=== PATIENT | male | born 1965 | race Caucasian/White ===

== ENCOUNTER 2021-06-07 10:23 | Emergency (ER) | payer OTHER, SELFPAY ==
--- NOTE | ~2021-06-07 | CT_ITS ---
EXAMINATION: CT KNEE WITHOUT CONTRAST, LEFT CLINICAL INFORMATION: Fall, tibial plateau fracture. COMPARISON: XR left knee 06/07/2021. TECHNIQUE: Helical scanning was performed with submillimeter collimation in the axial plane with multiplanar 2-D reconstructions. This CT examination was performed using dose optimization techniques as appropriate, variously including the following: *Automated exposure control *Adjustment of mA and/or kV according to patient size (this includes techniques or standardized protocols for targeted exams where dose is matched to indication/reason for exam; i.e. extremities or head) *Use of iterative reconstruction technique DLP: 215 mGy-cm FINDINGS: There is a comminuted intra-articular fracture of the posterior weightbearing surface of the lateral tibial plateau. At the anterior margin of this fracture there is up to approximately 2.5 mm of depression and a gap in the articular surface measuring up to 3 mm transverse and 2 mm AP. The fracture then downslopes posteriorly such that there appears to be up to 4.5 mm of depression of the articular surface. There our some areas of impaction. No other fractures are identified. There is a large joint effusion with a possible thin layer of fat within the suprapatellar effusion consistent with a lipohemarthrosis. There is a posterior ossific fragment which appears to be relatively smooth and corticated and most likely represents a chronic loose body rather than a fracture fragment. There is a posteromedial fluid collection consistent with pes anserine bursitis. There are small marginal osteophytes involving all compartments. There is moderate medial compartment narrowing. CT/CT knee LT wo con IMPRESSION: 1. Comminuted intra-articular fracture of the posterior weightbearing lateral tibial plateau with posterior downsloping and approximately 2.5 to 4.5 mm of depression. 2. Large lipohemarthrosis (tiny amount of fat). 3. Tricompartmental osteoarthritis, including moderate medial compartment narrowing. Posterior loose body. 4. Pes anserine bursitis.
--- NOTE | ~2021-06-07 | XR_ITS ---
EXAMINATION: XR KNEE, LEFT CLINICAL INFORMATION: Pain. Trauma. COMPARISON: None TECHNIQUE: Four views of the left knee. FINDINGS: There is a depressed lateral tibial plateau fracture. No other fracture is seen. The femoral tibial joints are normal. There are small osteophytes at the patellofemoral joint. There is a large joint effusion. XR/XR knee LT 3V IMPRESSION: Depressed lateral tibial plateau fracture.
[2021-06-07 10:35] VITALS: BP 128/86; PULSE 68; RESP 18; TEMP 35.8; O2SAT 97; BMI 27.3
--- NOTE | 2021-06-07 10:41 | ED_ITS ---
HPI - Fall General Chief Complaint: Fall Stated Complaint: left lower leg pain Time Seen by Provider: 06/07/21 10:37 Source: patient and EMS Mode of arrival: EMS Limitations: no limitations History of Present Illness HPI Narrative: 56-year-old male who jumped about 6 ft fence this morning twisted his left knee, now is complaining of left knee pain, no head injury, no LOC, no headache, no chest pain, no shortness of breath, no abdominal pain, no abdominal injuries, no hips pain, only complain of left knee pain and feeling unsteady when he walks. Related Data Previous Rx's Medication Instructions Recorded ibuprofen 600 mg tablet 600 mg PO TID PRN #20 tab 06/07/21 Allergies Allergy/AdvReac Type Severity Reaction Status Date / Time seafood Allergy Mild Rash Verified 06/07/21 10:40 Review of Systems Review of Systems: All other systems are reviewed and are negative Constitutional: Reports as per HPI and Reports no additional constitutional complaints Eyes: Reports as per HPI and Reports no additional eye complaints Reports system reviewed and no additional complaints, except as documented Cardiovascular: Reports as per HPI and Reports no additional cardiovascular complaints Respiratory: Reports as per HPI and Reports no additional respiratory complaints Gastrointestinal: Reports as per HPI and Reports no additional gastrointestinal complaints Genitourinary: Reports no additional female genitourinary complaints Musculoskeletal: Reports no additional musculoskeletal complaints Skin/Breast: Reports system reviewed and no additional complaints, except as docu Psychiatric: Reports no additional psychiatric complaints Endocrine: Reports no additional endocrine complaints Hematologic/Lymphatic: Reports no additional hematologic/lymphatic complaints Allergic/Immunologic: Reports no additional allergic/immunologic complaints Reports system reviewed and no additional complaints, except as documented and Reports Abnormal speech present [facility] Social History Social History Advance Directives: No Advance Directives Information Provided: Yes Physical Exam Vital Signs: Vital Signs: Last Vital Signs Temp 97.6 F 06/07/21 11:38 Pulse 68 06/07/21 10:35 Resp 18 06/07/21 12:30 BP 128/86 06/07/21 10:35 Pulse Ox 97 06/07/21 10:35 Body Mass Index 27.3 Vital signs have been reviewed as appeared to be correct. Blood pressure normal. Heart rate normal. Respiration rate normal. Temperature normal. Oxygen saturation normal. Appearance: Alert. Oriented X3. No acute distress. Head: Normal external exam. Normocephalic. Atraumatic. No [place] signs noted. No raccoon eyes noted Eyes: PERRLA. EOMI. Conjunctiva and sclera normal. Eyelids normal. ENT: TM's Normal. Pharynx normal. Uvula midline. Moist mucous membranes. No trismus noted. No drooling noted. No muffled voice noted. Neck: Normal inspection. Neck supple. FROM. No adenopathy. Thyroid Normal. No meningeal signs. No neck mass noted. CVS: Normal heart rate and rhythm. Heart sound normal. No murmurs noted. Pulses normal throughout. Respiratory: No respiratory distress. Painless inspiration. Breath sounds normal. No wheezes/rales/rhonchi noted. Chest nontender. No accessory muscle usage noted or decreased air movement noted. Abdomen: Soft and nontender. Bowel sounds normal in all 4 quadrants. No distention noted. No organomegaly noted. No visible injury noted. Back: No CVA tenderness. Full range of motion noted. Skin: Skin warm and dry. Normal skin color. Normal skin turgor. No rashes/lesions/lacerations noted. Extremities: left knee: no deformity or step-off, no ligamentous injury. Neuro: Oriented X 3. Cranial nerve exam: II-XII are grossly intact No motor deficit. No sensory deficit. Reflexes normal. Course Course Course Narrative: Assessment and plan. Left knee depressed tibial plateau fracture. Knee elevation, knee immobilizer, ice application and follow up with ortho. No weight-bearing. MDM - Fall Medical Records Attestation: I reviewed the patient's medical records. Imaging Data Left knee x-ray: Radiologist's impression: No acute pathology. Discharge Plan Discharge Clinical Impression: Closed fracture of tibial plateau Knee sprain Qualifiers: Encounter type: initial encounter Involved ligament of knee: unspecified ligament Laterality: left Qualified Code(s): S83.92XA - Sprain of unspecified site of left knee, initial encounter Patient Disposition: Home, Self-Care Instructions: Knee Immobilizer (ED) Prescriptions: New ibuprofen 600 mg tablet 600 mg PO TID PRN (Reason: pain) Qty: 20 RF: 0 Referrals: Reece Dang MD [Physician] - 2 days Fany Baldwin MD [Primary Care Provider] - 2 days
[2021-06-07] MEDS: Ibuprofen 600 MG TABLET PO (10:56)
[2021-06-07 11:38] VITALS: TEMP 36.4
[2021-06-07 12:30] VITALS: RESP 18
== END 2021-06-07 14:24 | disposition home or self-care (01) ==
PROVIDERS: Emergency Provider Emergency Medicine; PCP Internal Medicine
DX: S82.142A Displaced bicondylar fracture of left tibia, initial encounter for closed fracture (principal); S83.92XA Sprain of unspecified site of left knee, initial encounter; M25.562 Pain in left knee; W01.0XXA Fall on same level from slipping, tripping and stumbling without subsequent striking against object, initial encounter; Y93.9 Activity, unspecified; Y92.9 Unspecified place or not applicable; Y99.9 Unspecified external cause status
CPT/HCPCS: 73562; 73700; 99284

== ENCOUNTER → 2021-06-10 10:56 | Outpatient (BNVA) | payer OTHER, SELFPAY | PROVIDERS: PCP Internal Medicine; Visit Provider Physician Assistant ==

== ENCOUNTER 2021-07-19 07:56 | Outpatient (REF) | payer OTHER, SELFPAY ==
--- NOTE | ~2021-07-19 | XR_ITS ---
EXAMINATION: XR BOTH KNEES AP STANDING XR KNEE, 2 VIEWS, LEFT CLINICAL INFORMATION: Knee pain. COMPARISON: CT and radiographs dated 06/07/2021. TECHNIQUE: Standing AP view of both knees and lateral and sunrise views of the left knee. FINDINGS: LEFT KNEE: The known mildly depressed intra-articular fracture at the lateral tibial plateau is not well seen on these images. Alignment is grossly unchanged as compared to prior. No new fractures. An 8 mm loose body is present in the posterior aspect of the joint. Trace effusion. Mild foraminal osteoarthritis. RIGHT KNEE: Mild osteoarthritis in the medial and lateral compartments. Small chronic osseous fragment at the medial margin of the medial femoral condyle. No acute osseous findings. XR/XR knee LT 2V IMPRESSION: 1. Known, mildly depressed fracture at the lateral tibial plateau is not well seen on these images. No appreciable change in alignment. 2. Mild osteoarthritis in both knees, unchanged.
--- NOTE | ~2021-07-19 | XR_ITS ---
EXAMINATION: XR BOTH KNEES AP STANDING XR KNEE, 2 VIEWS, LEFT CLINICAL INFORMATION: Knee pain. COMPARISON: CT and radiographs dated 06/07/2021. TECHNIQUE: Standing AP view of both knees and lateral and sunrise views of the left knee. FINDINGS: LEFT KNEE: The known mildly depressed intra-articular fracture at the lateral tibial plateau is not well seen on these images. Alignment is grossly unchanged as compared to prior. No new fractures. An 8 mm loose body is present in the posterior aspect of the joint. Trace effusion. Mild foraminal osteoarthritis. RIGHT KNEE: Mild osteoarthritis in the medial and lateral compartments. Small chronic osseous fragment at the medial margin of the medial femoral condyle. No acute osseous findings. XR/XR knee standing BI IMPRESSION: 1. Known, mildly depressed fracture at the lateral tibial plateau is not well seen on these images. No appreciable change in alignment. 2. Mild osteoarthritis in both knees, unchanged.
== END 2021-07-19 07:57 | disposition home or self-care (01) ==
LOC: HO.HOSX 07:56
PROVIDERS: Visit Provider Physician Assistant
DX: S82.142D Displaced bicondylar fracture of left tibia, subsequent encounter for closed fracture with routine healing (principal)
CPT/HCPCS: 73560; 73565

== ENCOUNTER 2021-07-23 04:42 | Inpatient (IN) | payer OTHER, SELFPAY ==
[2021-07-23] VITALS (11 sets, daily range): BP systolic 102–155; BP diastolic 66–91; PULSE 73–124; RESP 16–20; TEMP 36.5–38.7; O2SAT 88–96; BMI 27.6; BMI 28.5
--- NOTE | ~2021-07-23 | XR_ITS ---
EXAMINATION: XR CHEST CLINICAL INFORMATION: Chest pain COMPARISON: None TECHNIQUE: Frontal view of the chest was obtained. FINDINGS: Cardiac leads overlie the chest. The lungs are well expanded. Patchy airspace opacities of the left mid to lower lung. No pleural effusion or pneumothorax. The cardiomediastinal silhouette is within normal limits. XR/XR chest 1V IMPRESSION: Patchy left mid to lower lung airspace opacities are concerning for pneumonia. Follow-up to resolution.
--- NOTE | 2021-07-23 04:57 | ECG_ITS ---
Test Reason : ABD PAIN Blood Pressure : / mmHG Vent. Rate : 117 BPM Atrial Rate : 117 BPM P-R Int : 136 ms QRS Dur : 076 ms QT Int : 326 ms P-R-T Axes : 044 -35 014 degrees QTc Int : 454 ms Sinus tachycardia Left axis deviation Abnormal ECG When compared with ECG of 13-APR-2006 20:39, No significant change was found Referred By: Generic ED Physician Electronically Signed By:JOSE ANGEL GARAY
[2021-07-23 05:26] LABS: Appearance Urine CLEAR; Color Urine YELLOW; Glucose Urine UA NEG (NEG); Leukocyte Esterase Urine NEG (NEG); Nitrite Urine NEG (NEG); Specific Gravity - Urine 1.025 (1.005-1.025); Urine Blood NEG (NEG); Urine Ketones NEG (NEG); Urine Protein NEG (NEG-TRACE)
[2021-07-23 05:38] LABS: Basophils Percent Auto 0.2 % (0-2); Eosinophils Absolute Auto 0.1 X10*3/uL (0.0-0.4); Eosinophils Percent Auto 0.7 % (0-4); Hematocrit 45.3 % (42.0-52.0); Hemoglobin 14.7 g/dl (14.0-18.0); Imm Gran Abs Auto 0.04 X10*3/uL (0.00-0.03); Imm Gran Pct Auto 0.3 % (0.0-0.4); Lymphocytes Absolute Auto 0.9 X10*3/uL (1.2-4.9); Lymphocytes Percent Auto 6.3 % (20-40); MANUAL DIFF FLAG SCAN; Mean Corpuscular HGB Conc 32.5 g/dl (31.0-36.0); Mean Corpuscular Hemoglobin 29.9 pg (27.0-33.0); Mean Corpuscular Volume 92.1 fL (80.0-98.0); Mean Platelet Volume 10.2 fL (9.4-12.4); Monocytes Absolute Auto 0.3 X10*3/uL (0.1-1.2); Monocytes Percent Auto 2.1 % (2-11); Neutrophils Absolute Auto 13.2 x10*3/uL (2.0-8.3); Neutrophils Percent Auto 90.4 % (45-73); Platelet Count 351 X10*3/uL (160-400); Red Blood Count 4.92 X10*6/uL (4.60-5.80); Red Cell Distribution Width 13.3 % (11.0-16.0); SCAN SMEAR FLAG 1; White Blood Count 14.6 X10*3/uL (4.8-10.8)
[2021-07-23 05:39] LABS: COVID-19 Test Negative (Negative)
[2021-07-23 05:43] LABS: Anion Gap 11 (12-20); Blood Urea Nitrogen 19 mg/dL (9-16); Calcium 9.5 mg/dL (8.4-10.2); Carbon Dioxide 30 mmol/L (22-29); Chloride 104 mmol/L (96-108); Creatinine Clr Calc Pharmacy 90.8; Estimated Glomerular Filt Rate > 60; Glucose Random 109 mg/dL (60-115); Sodium 141 mmol/L (135-145)
[2021-07-23 05:44] LABS: Lactic Acid 1.3 mmol/L (0.5-2.0)
[2021-07-23 05:52] LABS: INTERNATIONAL NORM RATIO 0.9 (0.9-1.1); Prothrombin Time 10.5 SEC (9.9-13.0)
[2021-07-23 06:04] LABS: Troponin-I High Sensitivity < 3.5 ng/L (<3.5-35.0)
[2021-07-23 06:08] LABS: SLIDE REVIEW VERIFIED
--- NOTE | 2021-07-23 06:35 | ED.CHESTPAIN ---
HPI - Chest Pain General Chief Complaint: Chest Pain Stated Complaint: body aches Time Seen by Provider: 07/23/21 06:34 Source: patient Mode of arrival: EMS Limitations: no limitations History of Present Illness MD complaint: other (cough, fevers, doesn't feel well) Pertinent past history: other (asthma, received 3 COVID shots) Onset (ago): day(s) (2) Timing of current episode: constant Prior episodes: No Onset: during rest Pain location: other (whole body) Severity: moderate Quality: aching Relieving factors: nothing Exacerbating factors: other (worse with cough) Associated symptoms: other (cough, fevers, mucous production, doesn't feel well) Treatment prior to arrival: none Related Data Home Medications Medication Instructions Recorded Confirmed albuterol sulfate 90 mcg/actuation INHALATION 07/23/21 aerosol inhaler budesonide-formoterol HFA 160 INHALATION 07/23/21 mcg-4.5 mcg/actuation aerosol inhaler (Symbicort) omeprazole 40 mg capsule,delayed 1 cap PO DAILY 07/23/21 release rosuvastatin 10 mg tablet 1 tab PO BEDTIME 07/23/21 Previous Rx's Medication Instructions Recorded ibuprofen 600 mg tablet 600 mg PO TID PRN #20 tab 06/07/21 Allergies Allergy/AdvReac Type Severity Reaction Status Date / Time seafood Allergy Mild Rash Verified 07/19/21 14:04 Review of Systems Review of Systems: Constitutional : pos Fever, pos Chills ENT/Mouth : No Hoarseness, No sore throat, No Rhinorrhea Eyes: No Redness, No Discharge, No Vision Changes Cardiovascular : No Chest Pain, positive SOB, positive Dyspnea on Exertion, No Edema Respiratory : positive Cough, pos Sputum, positive Wheezing, Gastrointestinal : No Nausea, No Vomiting, No Diarrhea, No abdominal Pain Genitourinary : No Dysuria, No Hematuria Musculoskeletal : No joint pain, pos Myalgias Skin : No rash Neuro : pos Weakness, No Numbness, No Headache Psych : No anxiety, depression Heme/Lymph: No Bruising, No Bleeding Endocrine : No Polyuria, No Polydipsia All other systems reviewed and are negative [facility] Past Medical History Attestation statement: The following information was validated with the patient. Medical History Asthma Social History Social History (Updated 07/23/21 @ 06:52 by Katiuska Rousseau DO) Patient Tobacco Use Status: Former Tobacco user Advance Directives: No Current occupational status: disabled Current occupation: rt hand Physical Exam Vital Signs: Vital Signs: Last Vital Signs Temp 100.3 F 07/23/21 07:54 Pulse 118 H 07/23/21 08:25 Resp 20 07/23/21 08:25 BP 127/76 07/23/21 07:54 Pulse Ox 88 L 07/23/21 08:25 Oxygen Flow Rate 3 07/23/21 04:51 BMI result Body Mass Index 27.6 Appearance: Alert. Oriented X3. No acute distress. Eyes: Pupils equal, round and reactive to light. ENT: Pharynx normal. Neck: Normal inspection. Neck supple. CVS: tachycardic heart rate and rhythm. Pulses normal. Respiratory: No respiratory distress. Breath sounds mild diffuse exp wheezes noted Abdomen: Soft and nontender. Skin: Skin warm and dry. Normal skin color. Normal skin turgor. Extremities: No lower extremity edema. No calf ttp Neuro: Oriented X 3. No motor deficit. No sensory deficit. Course Course Course Narrative: tachycardic, febrile, 88% on RA - will admit for pneumonia rapid test negative reprorts booster x 3 PCR sent off. MDM - Chest Pain MDM Narrative Medical decision making narrative: 56 yo male with hx of asthma vaccinated x 3 for COVID comes in with URI symptoms and not feeling well at this time seems more infectious - labs, CXR, neb treatment, IV steroids, lactic acid and cultures. CXR from triage shows that he has left sided pneumonia - CAP treatment ordered after review at 640am. Dispo per improvement and observation in ED Lab Data Result diagrams: 07/23/21 05:24 07/23/21 05:15 Labs: Lab Results 07/23/21 07/23/21 07/23/21 Range/Units 05:15 05:15 05:15 WBC (4.8-10.8) X10*3/uL RBC (4.60-5.80) X10*6/uL Hgb (14.0-18.0) g/dl Hct (42.0-52.0) % MCV (80.0-98.0) fL MCH (27.0-33.0) pg MCHC (31.0-36.0) g/dl RDW (11.0-16.0) % Plt Count (160-400) X10*3/uL MPV (9.4-12.4) fL Immature Gran % (Auto) (0.0-0.4) % Neut % (Auto) (45-73) % Lymph % (Auto) (20-40) % [place] % (Auto) (2-11) % Eos % (Auto) (0-4) % Baso % (Auto) (0-2) % Lymph # (Auto) (1.2-4.9) X10*3/uL [place] # (Auto) (0.1-1.2) X10*3/uL Eos # (Auto) (0.0-0.4) X10*3/uL Baso # (Auto) (0.0-0.2) X10*3/uL Abs Immat Gran (auto) (0.00-0.03) X10*3/uL Absolute Neuts (auto) (2.0-8.3) x10*3/uL Absolute Nucleated RBC (0.0-0.012) X10*3/uL Nucleated RBC % (auto) (0.0-0.2) /100WBC Smear Tech's Comments PT (9.9-13.0) SEC INR (0.9-1.1) Sodium 141 (135-145) mmol/L Potassium 4.0 (3.3-5.1) mmol/L Chloride 104 (96-108) mmol/L Carbon Dioxide 30 H (22-29) mmol/L Anion Gap 11 L (12-20) BUN 19 H (9-16) mg/dL Creatinine 0.94 (0.5-1.4) mg/dL Estim Creat Clear Calc 90.8 Estimated GFR > 60 Random Glucose 109 (60-115) mg/dL Lactic Acid 1.3 (0.5-2.0) mmol/L Calcium 9.5 (8.4-10.2) mg/dL Troponin I High Sens (<3.5-35.0) ng/L Urine Color Urine Appearance Urine pH (5.0-8.0) Ur Specific [place] (1.005-1.025) Urine Protein (NEG-TRACE) MG/DL Urine Glucose (UA) (NEG) MG/DL Urine Ketones (NEG) MG/DL Urine Blood (NEG) Urine Nitrite (NEG) Ur Leukocyte Esterase (NEG) COVID-19 (FELIX) Negative (Negative) COVID-19 Clin Com See Note Influenza Type A (PCR) (Negative) Influenza Type B (PCR) (Negative) RSV RNA Qual (PCR) (Negative) SARS-CoV-2 RNA (RT-PCR) (Negative) 07/23/21 07/23/21 07/23/21 Range/Units 05:16 05:24 05:24 WBC 14.6 H (4.8-10.8) X10*3/uL RBC 4.92 (4.60-5.80) X10*6/uL Hgb 14.7 (14.0-18.0) g/dl Hct 45.3 (42.0-52.0) % MCV 92.1 (80.0-98.0) fL MCH 29.9 (27.0-33.0) pg MCHC 32.5 (31.0-36.0) g/dl RDW 13.3 (11.0-16.0) % Plt Count 351 (160-400) X10*3/uL MPV 10.2 (9.4-12.4) fL Immature Gran % (Auto) 0.3 (0.0-0.4) % Neut % (Auto) 90.4 H (45-73) % Lymph % (Auto) 6.3 L (20-40) % [place] % (Auto) 2.1 (2-11) % Eos % (Auto) 0.7 (0-4) % Baso % (Auto) 0.2 (0-2) % Lymph # (Auto) 0.9 L (1.2-4.9) X10*3/uL [place] # (Auto) 0.3 (0.1-1.2) X10*3/uL Eos # (Auto) 0.1 (0.0-0.4) X10*3/uL Baso # (Auto) 0.0 (0.0-0.2) X10*3/uL Abs Immat Gran (auto) 0.04 H (0.00-0.03) X10*3/uL Absolute Neuts (auto) 13.2 H (2.0-8.3) x10*3/uL Absolute Nucleated RBC 0.000 (0.0-0.012) X10*3/uL Nucleated RBC % (auto) 0.0 (0.0-0.2) /100WBC Smear Tech's Comments VERIFIED PT (9.9-13.0) SEC INR (0.9-1.1) Sodium (135-145) mmol/L Potassium (3.3-5.1) mmol/L Chloride (96-108) mmol/L Carbon Dioxide (22-29) mmol/L Anion Gap (12-20) BUN (9-16) mg/dL Creatinine (0.5-1.4) mg/dL Estim Creat Clear Calc Estimated GFR Random Glucose (60-115) mg/dL Lactic Acid (0.5-2.0) mmol/L Calcium (8.4-10.2) mg/dL Troponin I High Sens < 3.5 (<3.5-35.0) ng/L Urine Color YELLOW Urine Appearance CLEAR Urine pH 6.0 (5.0-8.0) Ur Specific [place] 1.025 (1.005-1.025) Urine Protein NEG (NEG-TRACE) MG/DL Urine Glucose (UA) NEG (NEG) MG/DL Urine Ketones NEG (NEG) MG/DL Urine Blood NEG (NEG) Urine Nitrite NEG (NEG) Ur Leukocyte Esterase NEG (NEG) COVID-19 (FELIX) (Negative) COVID-19 Clin Com Influenza Type A (PCR) (Negative) Influenza Type B (PCR) (Negative) RSV RNA Qual (PCR) (Negative) SARS-CoV-2 RNA (RT-PCR) (Negative) 07/23/21 07/23/21 Range/Units 05:24 08:03 WBC (4.8-10.8) X10*3/uL RBC (4.60-5.80) X10*6/uL Hgb (14.0-18.0) g/dl Hct (42.0-52.0) % MCV (80.0-98.0) fL MCH (27.0-33.0) pg MCHC (31.0-36.0) g/dl RDW (11.0-16.0) % Plt Count (160-400) X10*3/uL MPV (9.4-12.4) fL Immature Gran % (Auto) (0.0-0.4) % Neut % (Auto) (45-73) % Lymph % (Auto) (20-40) % [place] % (Auto) (2-11) % Eos % (Auto) (0-4) % Baso % (Auto) (0-2) % Lymph # (Auto) (1.2-4.9) X10*3/uL [place] # (Auto) (0.1-1.2) X10*3/uL Eos # (Auto) (0.0-0.4) X10*3/uL Baso # (Auto) (0.0-0.2) X10*3/uL Abs Immat Gran (auto) (0.00-0.03) X10*3/uL Absolute Neuts (auto) (2.0-8.3) x10*3/uL Absolute Nucleated RBC (0.0-0.012) X10*3/uL Nucleated RBC % (auto) (0.0-0.2) /100WBC Smear Tech's Comments PT 10.5 (9.9-13.0) SEC INR 0.9 (0.9-1.1) Sodium (135-145) mmol/L Potassium (3.3-5.1) mmol/L Chloride (96-108) mmol/L Carbon Dioxide (22-29) mmol/L Anion Gap (12-20) BUN (9-16) mg/dL Creatinine (0.5-1.4) mg/dL Estim Creat Clear Calc Estimated GFR Random Glucose (60-115) mg/dL Lactic Acid (0.5-2.0) mmol/L Calcium (8.4-10.2) mg/dL Troponin I High Sens (<3.5-35.0) ng/L Urine Color Urine Appearance Urine pH (5.0-8.0) Ur Specific [place] (1.005-1.025) Urine Protein (NEG-TRACE) MG/DL Urine Glucose (UA) (NEG) MG/DL Urine Ketones (NEG) MG/DL Urine Blood (NEG) Urine Nitrite (NEG) Ur Leukocyte Esterase (NEG) COVID-19 (FELIX) (Negative) COVID-19 Clin Com Influenza Type A (PCR) NEGATIVE (Negative) Influenza Type B (PCR) NEGATIVE (Negative) RSV RNA Qual (PCR) NEGATIVE (Negative) SARS-CoV-2 RNA (RT-PCR) NEGATIVE (Negative) ECG Data ECG #1: Attestation: I personally reviewed and interpreted this ECG as follows: ECG interpretation date: 07/23/21 ECG interpretation time: 07:04 Interpretation: Rate: 117 Rhythm: sinus tachycardia [place]: left Normal P waves. Normal AYAZ. Normal QRS complex. ST T wave : normal no VIOLETTA qTC: normal prior studies: no acute ischemia The study has been interpreted contemporaneously by me. . Discharge Plan Discharge Clinical Impression: Pneumonia, Fever, Hypoxia Patient Disposition: Admitted As Inpatient
[2021-07-23] MEDS: Ibuprofen 600 MG TABLET PO (07:03)
[2021-07-23] MEDS: Acetaminophen 325 MG TABLET 650 MG PO (07:04)
[2021-07-23] MEDS: methylPREDNISolone Sod Succ 125 MG/2 ML VIAL IVPUSH (07:04)
[2021-07-23] MEDS: cefTRIAXone sodium 1 GM in 0.9 % Sodium Chloride 50 ML IV (07:06)
[2021-07-23] MEDS: Albuterol Sulfate (0.083%) 2.5 MG/3 ML VIAL.NEB INHALE ×3 (07:09→20:37)
[2021-07-23] MEDS: Azithromycin 500 MG in 0.9 % Sodium Chloride 250 ML 125 MG IV (07:53)
--- NOTE | 2021-07-23 08:06 | PC.NURSE ---
PT PALE AND REMAINS TACHYCARDIAC AND FEBRILE. HE IS ON O2 NC WILL TRIAL OFF. REPORTS NAUSEA, ANTIBIOTICS INFUSING
[2021-07-23 08:45] LABS: Influenza A PCR NEGATIVE (Negative); Influenza B PCR NEGATIVE (Negative); Resp Syncy Virus RNA Qual PCR NEGATIVE (Negative); SARS COV2 PCR INHOUSE NEGATIVE (Negative)
--- NOTE | 2021-07-23 09:06 | PHA.MEDREC ---
Pharmacy Consult ? Medication Reconciliation Pharmacy has completed the medication reconciliation. No remarkable issues. Jenan Ivan RP
--- NOTE | 2021-07-23 09:11 | P.HPHOSP_ITS ---
History of Present Illness Date of Service: 07/23/21 Chief Complaint: Shortness of breath 56 yearl old male with asthma, HLD, vaccinated for covid x 2, and booster, and flu shot. Starting last night was having fever and chills, sweating and vomitted 2, he has been coughing with phlegm. Here had fever of 101, WBC of 14 CXR shows left lower infiltrated O2 sat was 88 on room air and up to 96 on 2 liters. He is being admitted for CAP with sepsis Review of Systems Review of Systems: Gen:+ fever Resp: no sob, no cough CV: no chest, no DEAN, no leg edema GI: No+ n/v, no abd pain Neuro: No confusion Yes all other systems are reviewed and are negative [facility] Medical History (Updated 07/23/21 @ 09:32 by Ty Peterson MD) Asthma GERD (gastroesophageal reflux disease) HLD (hyperlipidemia) Family History (Updated 07/23/21 @ 09:19 by Ty Peterson MD) Brother Diabetes Surgical History (Updated 07/23/21 @ 09:19 by Ty Peterson MD) History of appendectomy Social History (Updated 07/23/21 @ 06:52 by Katiuska Rousseau DO) Patient Tobacco Use Status: Former Tobacco user Advance Directives: No Current occupational status: disabled Current occupation: rt hand Meds Allergies Allergy/AdvReac Type Severity Reaction Status Date / Time seafood Allergy Mild Rash Verified 07/19/21 14:04 Active Medications: Current Medications Sodium Chloride (Ns) 1,000 mls @ 999 mls/hr IV .Q1H1M [place] Stop: 07/23/21 09:15 Pharmacy Consult (Consult Rx Perform Med Rec) 1 each MISCELLANE ONCE PRN PRN Reason: Consult order Home Medications Medication Instructions Recorded Confirmed Last Taken Type albuterol sulfate 1.25 mg/3 mL 2.5 mg INHALATION BID PRN 07/23/21 07/23/21 Unknown History solution for nebulization albuterol sulfate 90 mcg/actuation 2 puff INHALATION Q4H PRN 07/23/21 07/23/21 Unknown History aerosol inhaler budesonide-formoterol HFA 160 1 puff INHALATION BID 07/23/21 07/23/21 07/22/21 History mcg-4.5 mcg/actuation aerosol inhaler (Symbicort) omeprazole 40 mg capsule,delayed 1 cap PO DAILY 07/23/21 07/23/21 07/22/21 History release rosuvastatin 10 mg tablet 1 tab PO BEDTIME 07/23/21 07/22/21 History Physical Exam Vital Signs and Narrative: Vital Signs: Last Vital Signs Temp 100.3 F 07/23/21 07:54 Pulse 118 H 07/23/21 08:25 Resp 20 07/23/21 08:25 BP 127/76 07/23/21 07:54 Pulse Ox 88 L 07/23/21 08:25 Oxygen Flow Rate 3 07/23/21 04:51 BMI result Body Mass Index 27.6 Const: Other: Constitutional: Alert, in no distress Mental Status: Oriented to person, place and time. Eyes: Pupils are equal, round and reactive to light. Ear, Nose and Throat: Oropharynx clear, mucous membranes moist. Ears and nose without eformities. Trachea midline. Respiratory: Clear to auscultation. some wheezes, no accessory muscle use Cardiovascular: S1 S2 regular. No murmurs, rubs or gallops. Gastrointestinal: Abdomen soft, non-tender, non-distended. Normal bowel sounds.? Neurologic: Cranial nerves II-XII grossly intact. No focal neurological defi cits. Moves all extremities spontaneously.? Skin: No rashes or lesions.? Musculoskeletal: No cyanosis or clubbing. Psychiatric: Normal mood and affect? Results Labs CBC and Chem 7: 07/23/21 05:24 07/23/21 05:15 Labs: Laboratory Results - last 24 hr 07/23/21 07/23/21 07/23/21 05:15 05:15 05:15 MCV MCH MCHC RDW Plt Count MPV Immature Gran % (Auto) Neut % (Auto) Lymph % (Auto) Frontier % (Auto) Eos % (Auto) Baso % (Auto) Lymph # (Auto) Frontier # (Auto) Eos # (Auto) Baso # (Auto) Abs Immat Gran (auto) Absolute Neuts (auto) Absolute Nucleated RBC Nucleated RBC % (auto) Smear Tech's Comments PT INR Anion Gap 11 L Estim Creat Clear Calc 90.8 Estimated GFR > 60 Random Glucose 109 Lactic Acid 1.3 Calcium 9.5 Troponin I High Sens Urine Color Urine Appearance Urine pH Ur Specific Upper Tract Urine Protein Urine Glucose (UA) Urine Ketones Urine Blood Urine Nitrite Ur Leukocyte Esterase COVID-19 (FELIX) Negative COVID-19 Clin Com See Note Influenza Type A (PCR) Influenza Type B (PCR) RSV RNA Qual (PCR) SARS-CoV-2 RNA (RT-PCR) 07/23/21 07/23/21 07/23/21 05:16 05:24 05:24 MCV 92.1 MCH 29.9 MCHC 32.5 RDW 13.3 Plt Count 351 MPV 10.2 Immature Gran % (Auto) 0.3 Neut % (Auto) 90.4 H Lymph % (Auto) 6.3 L Frontier % (Auto) 2.1 Eos % (Auto) 0.7 Baso % (Auto) 0.2 Lymph # (Auto) 0.9 L Frontier # (Auto) 0.3 Eos # (Auto) 0.1 Baso # (Auto) 0.0 Abs Immat Gran (auto) 0.04 H Absolute Neuts (auto) 13.2 H Absolute Nucleated RBC 0.000 Nucleated RBC % (auto) 0.0 Smear Tech's Comments VERIFIED PT INR Anion Gap Estim Creat Clear Calc Estimated GFR Random Glucose Lactic Acid Calcium Troponin I High Sens < 3.5 Urine Color YELLOW Urine Appearance CLEAR Urine pH 6.0 Ur Specific Upper Tract 1.025 Urine Protein NEG Urine Glucose (UA) NEG Urine Ketones NEG Urine Blood NEG Urine Nitrite NEG Ur Leukocyte Esterase NEG COVID-19 (FELIX) COVID-19 Clin Com Influenza Type A (PCR) Influenza Type B (PCR) RSV RNA Qual (PCR) SARS-CoV-2 RNA (RT-PCR) 07/23/21 07/23/21 05:24 08:03 MCV MCH MCHC RDW Plt Count MPV Immature Gran % (Auto) Neut % (Auto) Lymph % (Auto) Frontier % (Auto) Eos % (Auto) Baso % (Auto) Lymph # (Auto) Frontier # (Auto) Eos # (Auto) Baso # (Auto) Abs Immat Gran (auto) Absolute Neuts (auto) Absolute Nucleated RBC Nucleated RBC % (auto) Smear Tech's Comments PT 10.5 INR 0.9 Anion Gap Estim Creat Clear Calc Estimated GFR Random Glucose Lactic Acid Calcium Troponin I High Sens Urine Color Urine Appearance Urine pH Ur Specific Upper Tract Urine Protein Urine Glucose (UA) Urine Ketones Urine Blood Urine Nitrite Ur Leukocyte Esterase COVID-19 (FELIX) COVID-19 Clin Com Influenza Type A (PCR) NEGATIVE Influenza Type B (PCR) NEGATIVE RSV RNA Qual (PCR) NEGATIVE SARS-CoV-2 RNA (RT-PCR) NEGATIVE Imaging Radiologist's Impressions: Impressions Chest X-Ray 07/23/21 05:45 IMPRESSION: Patchy left mid to lower lung airspace opacities are concerning for pneumonia. Follow-up to resolution. Assessment and Plan (1) Sepsis: Status: Acute (2) Pneumonia: Qualifiers: Laterality: left Lung location: unspecified part of lung Pneumonia type: due to unspecified organism Qualified Code(s): J18.9 - Pneumonia, unspecified organism Status: Acute (3) Hypoxia: Status: Acute 56 male with asthma here with SOB and found to have acute hypoxic resp failure, sepsis, pneumonia and asthma exacerbation #Sepsis due to PNA #CAP -Started on Ceftriaxone and Azithro and will continue -APAP for fever #Acute hypoxic resp failue due to PNA and asthma--improved with O2, covid negative #Asthma with mod exaerbation--IV steroid, bronchodilators #HLD, Statin #GERD--Omeprazole Quality Stroke Does the patient have a stroke diagnosis?: No VTE Prior VTE?: No VTE Risk Level:: Medical - moderate - high VTE Device Contraindication: Treatment Not Indicated VTE Drug Contraindication: N/A - Med Ordered
[2021-07-23] MEDS: 0.9 % Sodium Chloride 1,000 ML 999 ML IV (10:13)
--- NOTE | 2021-07-23 10:57 | MHC.CM.PN ---
pt lives c his in their home. he reports that he is independent in his care. his can help him c any needs he may have at dc. this will include a ride home. pt denies the need for vna svcs at dc. dc plan is home no svcs. cm to cont. to follow.
[2021-07-23] MEDS: Enoxaparin Sodium 40 MG/0.4 ML SYRINGE SUBCUT (11:16)
--- NOTE | 2021-07-23 13:55 | PC.NURSE ---
pt sleeping in naps. he is tolerating po intake, no acute resp difficulties. pt awaiting room assignment for admission
[2021-07-23] MEDS: 0.9 % Sodium Chloride Flush 3 ML SYRINGE IVFLUSH ×2 (15:24→23:59)
[2021-07-23] MEDS: methylPREDNISolone Sod Succ 40 MG/ML VIAL IVPUSH (18:11)
[2021-07-24] VITALS (8 sets, daily range): BP systolic 109–130; BP diastolic 58–78; PULSE 72–96; RESP 16–18; TEMP 36.3–37.1; O2SAT 92–97; BMI 28.5
[2021-07-24] MEDS: Melatonin 3 MG TABLET 6 MG PO (00:04)
[2021-07-24] MEDS: cefTRIAXone sodium 1 GM in 0.9 % Sodium Chloride 50 ML IV (05:28)
[2021-07-24] MEDS: methylPREDNISolone Sod Succ 40 MG/ML VIAL IVPUSH ×4 (05:29→19:28)
[2021-07-24] MEDS: Azithromycin 500 MG TABLET PO (05:29)
--- NOTE | 2021-07-24 06:00 | PC.NURSE ---
Pt was admitted to [facility] last night, denies any pain, mild SOB on exertion and c/o pleuritic pain and headache with every persistent cough, oriented to the room and plan of care, meds given, Melatonin given as requested for sleep, slept well after.
[2021-07-24] MEDS: Albuterol Sulfate (0.083%) 2.5 MG/3 ML VIAL.NEB INHALE ×3 (08:38→16:05)
[2021-07-24] MEDS: ondansetron HCL 4 MG/2 ML VIAL IVPUSH (08:49)
[2021-07-24] MEDS: Acetaminophen 325 MG TABLET 650 MG PO ×2 (08:51→19:28)
[2021-07-24] MEDS: Enoxaparin Sodium 40 MG/0.4 ML SYRINGE SUBCUT (08:52)
--- NOTE | 2021-07-24 10:31 | P.PNIM_ITS ---
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 [employer] New 4d Temp 97.4 F 07/24/21 07:21 [employer] New 4d Pulse 72 07/24/21 08:39 [employer] NewNew 4d Resp 18 07/24/21 08:39 BP 116/78 07/24/21 07:21 Pulse Ox 94 07/24/21 07:21 Oxygen Flow Rate 3 07/23/21 04:51 BMI result Body Mass Index 28.5 Appearing in no acute distress lungs exp wheezing heart regular rate rhythm, clear S1, S2 positive bowel sounds, abdomen is soft, nontender neuro patient is alert x3, no focal deficits Objective Data Active Medications Acetaminophen (Acetaminophen 325 Mg Tablet) 650 mg PO Q4H PRN PRN Reason: fever and or pain Last Admin: 07/24/21 08:51 Dose: 650 mg Documented by: LAYLA Albuterol Sulfate (Albuterol Sulfate (0.083%) 2.5 Mg/3 Ml Vial.Neb) 2.5 mg INHALE RQ4H WHILE AWAKE [facility] Last Admin: 07/24/21 08:38 Dose: 2.5 mg Documented by: IVAN Azithromycin (Azithromycin 500 Mg Tablet) 500 mg PO Q24H [facility] Last Admin: 07/24/21 05:29 Dose: 500 mg Documented by: VINCE Enoxaparin Sodium (Enoxaparin Sodium 40 Mg/0.4 Ml Syringe) 40 mg SUBCUT Q24H [facility] Last Admin: 07/24/21 08:52 Dose: 40 mg Documented by: LAYLA Ceftriaxone Sodium 1 gm/ (Sodium Chloride) 50 mls @ 100 mls/hr IV Q24H [facility] Last Infusion: 07/24/21 06:08 Dose: 0 mls/hr Documented by: VINCE Magnesium Hydroxide (Milk Of Magnesia 30 Ml Oral.Susp) 30 ml PO DAILY PRN PRN Reason: Constipation Melatonin (Melatonin 3 Mg Tablet) 6 mg PO BEDTIME PRN PRN Reason: Insomnia Last Admin: 07/24/21 00:04 Dose: 6 mg Documented by: VINCE Methylprednisolone Sodium Succinate (Methylprednisolone Sod Succ 40 Mg/Ml Vial) 40 mg IVPUSH Q6H [facility] Last Admin: 07/24/21 05:29 Dose: 40 mg Documented by: VINCE Ondansetron HCl (Ondansetron Hcl 4 Mg/2 Ml Vial) 4 mg IVPUSH Q8H PRN PRN Reason: Nausea Last Admin: 07/24/21 08:49 Dose: 4 mg Documented by: LAYLA Pharmacy Consult (Consult Rx Perform Med Rec) 1 each MISCELLANE ONCE PRN PRN Reason: Consult order Labs CBC & Chem 7: 07/23/21 05:24 07/23/21 05:15 Microbiology Microbiology Results: Microbiology 07/23/21 05:24 Blood Culture - Preliminary Blood - Venous No growth after 24 hours. 07/23/21 05:15 Blood Culture - Preliminary Blood - Venous No growth after 24 hours. Assessment and Plan (1) Sepsis: Status: Acute (2) Pneumonia: Status: Acute (3) Asthma: Status: Acute Assessment and Plan: 56 male with asthma here with SOB and found to have acute hypoxic resp failure, sepsis, pneumonia and asthma exacerbation Sepsis secondary to CAP Fever, tachycardia Continue Ceftriaxone and Azithromycin Follow blood cx Acute hypoxic respiratory failure secondary to CAP and asthma Continue Ceftriaxone and Azithromycin Supplemental oxygen as needed IV steroid, bronchodilators HLD Statin GERD Omeprazole DISPO likely home when medically stable DVT prophylaxis with Lovenox Attending Dr. Peterson Quality Stroke Does the patient have a stroke diagnosis?: No VTE Prior VTE?: No VTE Risk Level:: Medical - moderate - high VTE Device Contraindication: Treatment Not Indicated VTE Drug Contraindication: N/A - Med Ordered
[2021-07-25] VITALS: BP 121/66; PULSE 77; RESP 18; TEMP 36.4; O2SAT 93
[2021-07-25] MEDS: methylPREDNISolone Sod Succ 40 MG/ML VIAL IVPUSH ×2 (00:35→06:23)
[2021-07-25] MEDS: Melatonin 3 MG TABLET 6 MG PO (00:38)
[2021-07-25 04:00] VITALS: BP 128/76; PULSE 87; RESP 17; TEMP 36.4; O2SAT 93
[2021-07-25] MEDS: Azithromycin 500 MG TABLET PO (06:24)
[2021-07-25] MEDS: cefTRIAXone sodium 1 GM in 0.9 % Sodium Chloride 50 ML IV (06:24)
[2021-07-25 07:26] VITALS: BP 115/73; PULSE 69; RESP 18; TEMP 36.2; O2SAT 93
--- NOTE | 2021-07-25 07:43 | P.DS_ITS ---
DS: Providers Provider Date of Service: 07/25/21 Date of admission: 07/23/21 09:33 Primary care physician: Unknown Physician Attending physician on discharge: [facility] Discharging clinician: Shawna Rodriguez DS: Diagnosis Discharge Diagnosis (1) Sepsis: Status: Acute (2) Pneumonia: Status: Acute (3) Asthma: Status: Acute DS: Summary Hospital Course Hospital Course: HP as per admitting provider 56 yearl old male with asthma, HLD, vaccinated for covid x 2, and booster, and flu shot. Starting last night was having fever and chills, sweating and vomitted 2, he has been coughing with phlegm. Here had fever of 101, WBC of 14 CXR shows left lower infiltrated O2 sat was 88 on room air and up to 96 on 2 liters. He is being admitted? for CAP? with sepsis Sepsis secondary to CAP. Sepsis resolved. Fever, tachycardia. Treated with Ceftriaxone and Azithromycin. Blood cultures negative.He will continue 5 more days of antibiotics. Acute hypoxic respiratory failure secondary to CAP and asthma. Treated with supplemental oxygen as needed. No further hypoxia noted. Treated with IV steroid and bronchodilators. 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 4d Pulse 69 07/25/21 07:26 Warehouse [employer] NewNew 4d Resp 18 07/25/21 07:26 BP 115/73 07/25/21 07:26 Pulse Ox 93 07/25/21 07:26 Oxygen Flow Rate 3 07/23/21 04:51 BMI result Body Mass Index 28.5 Appearing in no acute distress head is normocephalic atraumatic eyes pupils are PERRLA sclera is anicteric mouth throat mucous membranes are intact and moist neck is supple no lymphadenopathy, no JVD noted lung sounds are clear to auscultation heart regular rate rhythm, clear S1, S2 positive bowel sounds, abdomen is soft, nontender neuro patient is alert x3, no focal deficits DS: Data Data Completed and Pending Labs on day of discharge: Preliminary micro results at discharge 07/23/21 05:24 Blood Culture - Preliminary Blood - Venous No growth after 48 hours. 07/23/21 05:15 Blood Culture - Preliminary Blood - Venous No growth after 48 hours. Discharge Plan Discharge Anticipated Discharge Date/Time: 07/25/21 07:40 Patient Disposition: Home, Self-Care Discharge Diagnosis: Asthma exacerbation Community-acquired pneumonia Referrals: Physician,Unknown J [Primary Care Provider] - 1 Week Discharge Medications: New cefuroxime axetil 500 mg tablet 500 mg PO BID Qty: 10 RF: 0 prednisone 10 mg tablet 40 mg PO DAILY Qty: 16 RF: 0 azithromycin 500 mg Tablet 500 mg PO Q24H Qty: 5 RF: 0 Continued ibuprofen 600 mg tablet 600 mg PO TID PRN (Reason: pain) Qty: 20 RF: 0 omeprazole 40 mg capsule,delayed release(DR/EC) 1 cap PO DAILY RF: 0 albuterol sulfate 90 mcg/actuation HFA aerosol inhaler 2 puff inhalation Q4H PRN (Reason: Wheezing) RF: 0 rosuvastatin 10 mg tablet 1 tab PO BEDTIME RF: 0 budesonide-formoterol [Symbicort] 160-4.5 mcg/actuation HFA aerosol inhaler 1 puff inhalation BID RF: 0 albuterol sulfate 1.25 mg/3 mL Solution For Nebulization 2.5 mg INHALATION BID PRN (Reason: Wheezing) RF: 0 Discharge Orders: Discharge Order (Routine); Ordered 07/25/21 Ordered By: Shawna Rodriguez Diet: advance to usual diet Activity on Discharge: As tolerated Stand Alone Forms: Patient Portal Discharge page Care Plan Goals: Complete resolution of symptoms Health Concerns: Asthma exacerbation Community-acquired pneumonia Plan of Treatment: Follow-up with primary care provider as needed Continue antibiotics as prescribed Assessment: see discharge summary
[2021-07-25] MEDS: Albuterol Sulfate (0.083%) 2.5 MG/3 ML VIAL.NEB INHALE (08:20)
[2021-07-25 08:21] VITALS: PULSE 69; RESP 18; O2SAT 93
== END 2021-07-25 11:13 | disposition home or self-care (01) | DRG 193 ==
LOC: HO.ED 08:38 → HO.EDOVER 09:37 → HO.S3 19:10
PROVIDERS: Admitting Provider Internal Medicine; Emergency Provider Emergency Medicine; Visit Provider Nurse Practitioner Acute Care
DX: J18.9 Pneumonia, unspecified organism (principal); J96.01 Acute respiratory failure with hypoxia; J45.901 Unspecified asthma with (acute) exacerbation; E78.5 Hyperlipidemia, unspecified; K21.9 Gastro-esophageal reflux disease without esophagitis; Z20.822 Contact with and (suspected) exposure to COVID-19; Z87.891 Personal history of nicotine dependence; Z79.1 Long term (current) use of non-steroidal anti-inflammatories (NSAID); Z79.899 Other long term (current) drug therapy
CPT/HCPCS: 0241U; 36415; 71045; 80048; 81003; 83605; 84484; 85025; 85610; 87040; 87635; 93005; 94640; 99285; J0456; J0696; J1650; J2405; J2920; J2930

== ENCOUNTER 2021-08-24 08:06 | Outpatient (REF) | payer OTHER, SELFPAY ==
[2021-08-24 08:34] LABS: MANUAL DIFF FLAG NO
[2021-08-24 09:26] LABS: Basophils Percent Auto 0.5 % (0-2); Eosinophils Absolute Auto 0.5 X10*3/uL (0.0-0.4); Hematocrit 40.9 % (42.0-52.0); Hemoglobin 13.5 g/dl (14.0-18.0); Imm Gran Abs Auto 0.01 X10*3/uL (0.00-0.03); Imm Gran Pct Auto 0.2 % (0.0-0.4); Lymphocytes Absolute Auto 1.6 X10*3/uL (1.2-4.9); Lymphocytes Percent Auto 27.6 % (20-40); Mean Corpuscular Hemoglobin 29.6 pg (27.0-33.0); Mean Corpuscular Volume 89.7 fL (80.0-98.0); Mean Platelet Volume 10.8 fL (9.4-12.4); Monocytes Absolute Auto 0.6 X10*3/uL (0.1-1.2); Monocytes Percent Auto 9.6 % (2-11); Neutrophils Absolute Auto 3.2 x10*3/uL (2.0-8.3); Neutrophils Percent Auto 54.1 % (45-73); Platelet Count 420 X10*3/uL (160-400); Red Blood Count 4.56 X10*6/uL (4.60-5.80); Red Cell Distribution Width 13.3 % (11.0-16.0); White Blood Count 5.9 X10*3/uL (4.8-10.8)
[2021-08-24 10:00] LABS: Alanine Aminotransferase 24 U/L (0-40); Alkaline Phosphatase 107 U/L (39-117); Anion Gap 13 (12-20); Aspartate Amino Transferase 27 U/L (5-37); Bilirubin Total 0.9 mg/dL (0.0-1.0); Blood Urea Nitrogen 16 mg/dL (9-16); Calcium 9.6 mg/dL (8.4-10.2); Carbon Dioxide 25 mmol/L (22-29); Chloride 108 mmol/L (96-108); Cholesterol 183 mg/dL; Estimated Glomerular Filt Rate > 60; Glucose Random 109 mg/dL (60-115); HDL Cholesterol 34 mg/dL; LDL Cholesterol Calculated 118 mg/dl; Potassium 4.5 mmol/L (3.3-5.1); Sodium 141 mmol/L (135-145); Total Protein 6.9 g/dL (6.5-8.0); Triglycerides 159 mg/dL
[2021-08-24 10:22] LABS: Thyroid Stimulating Hormone 3.11 uIU/mL (0.32-4.0)
== END 2021-08-24 08:07 | disposition home or self-care (01) ==
LOC: HO.LAB 08:06
PROVIDERS: PCP Internal Medicine; Visit Provider Internal Medicine
DX: Z00.00 Encounter for general adult medical examination without abnormal findings (principal); Z12.5 Encounter for screening for malignant neoplasm of prostate; N40.0 Benign prostatic hyperplasia without lower urinary tract symptoms; J45.909 Unspecified asthma, uncomplicated; E78.00 Pure hypercholesterolemia, unspecified
CPT/HCPCS: 36415; 80053; 80061; 84153; 84443; 85025

== ENCOUNTER 2022-06-17 10:22 | Emergency (ER) | payer OTHER, SELFPAY ==
--- NOTE | ~2022-06-17 | XR_ITS ---
EXAMINATION: XR CHEST CLINICAL INFORMATION: Chest pain and shortness of breath COMPARISON: None TECHNIQUE: 2 views of the chest were obtained. FINDINGS: Normal symmetric lung volumes. No parenchymal consolidation. No pleural effusion. No pneumothorax. Cardiomediastinal silhouette and pulmonary vascularity are within normal limits. No acute osseous abnormalities. XR/XR chest 2V IMPRESSION: Clear lungs
--- NOTE | 2022-06-17 10:24 | ECG_ITS ---
Test Reason : chest pain Blood Pressure : / mmHG Vent. Rate : 096 BPM Atrial Rate : 096 BPM P-R Int : 130 ms QRS Dur : 080 ms QT Int : 354 ms P-R-T Axes : 059 -30 001 degrees QTc Int : 447 ms Normal sinus rhythm Left anterior fascicular block Abnormal ECG When compared with ECG of 23-JUL-2021 05:28, Heart rate has decreased Referred By: Generic ED Physician Electronically Signed By:EDDIE TANG MD
[2022-06-17 10:25] VITALS: BP 121/66; PULSE 96; RESP 16; TEMP 36.4; O2SAT 95; BMI 26.6
[2022-06-17 10:57] LABS: MANUAL DIFF FLAG NO
[2022-06-17 10:58] LABS: Basophils Percent Auto 0.3 % (0-2); Eosinophils Absolute Auto 0.5 X10*3/uL (0.0-0.4); Eosinophils Percent Auto 4.1 % (0-4); Hematocrit 43.8 % (42.0-52.0); Hemoglobin 14.4 g/dl (14.0-18.0); Imm Gran Abs Auto 0.03 X10*3/uL (0.00-0.03); Imm Gran Pct Auto 0.3 % (0.0-0.4); Lymphocytes Absolute Auto 1.2 X10*3/uL (1.2-4.9); Lymphocytes Percent Auto 9.7 % (20-40); Mean Corpuscular HGB Conc 32.9 g/dl (31.0-36.0); Mean Corpuscular Volume 88.1 fL (80.0-98.0); Mean Platelet Volume 9.5 fL (9.4-12.4); Monocytes Percent Auto 8.3 % (2-11); Neutrophils Absolute Auto 9.2 x10*3/uL (2.0-8.3); Neutrophils Percent Auto 77.3 % (45-73); Platelet Count 470 X10*3/uL (160-400); Red Blood Count 4.97 X10*6/uL (4.60-5.80); Red Cell Distribution Width 13.5 % (11.0-16.0); White Blood Count 11.8 X10*3/uL (4.8-10.8)
[2022-06-17 11:20] LABS: COVID-19 Test Negative (Negative); IDNOW Serial# BCCEAD1C
--- NOTE | 2022-06-17 11:20 | ED.SOB ---
HPI - SOB/Dyspnea General Chief Complaint: Dyspnea Stated Complaint: Chest Pain x 1Day Time Seen by Provider: 06/17/22 10:41 Source: patient Mode of arrival: ambulatory Limitations: no limitations History of Present Illness HPI Narrative: Patient is a 49-year-old male who presents emergency department for evaluation of cough, shortness of breath, asthma exacerbation, and chest pain. Patient states that for the past couple of days he has been experiencing a productive cough, intermittent episodes of shortness of breath, he ran out of his inhaler so he has been unable to use them. Yesterday he had diffuse anterior chest pain after excessive coughing. Pain resolved for the rest of the day after few minutes. He endorsed some chest pain this morning as well denies chest pain currently, but with cough and deep inspiration he does feel discomfort. Denies fevers, chills, neck pain, neck stiffness, nausea, vomiting, abdominal pain. Denies any known sick contacts. He has been vaccinated for COVID-19 x3 Related Data Home Medications Medication Instructions Recorded Confirmed albuterol sulfate 1.25 mg/3 mL 2.5 mg inhalation BID PRN Wheezing 07/23/21 07/23/21 solution for nebulization albuterol sulfate 90 mcg/actuation 2 puff inhalation Q4H PRN Wheezing 07/23/21 07/23/21 aerosol inhaler budesonide-formoterol HFA 160 1 puff inhalation BID 07/23/21 07/23/21 mcg-4.5 mcg/actuation aerosol inhaler (Symbicort) omeprazole 40 mg capsule,delayed 1 cap PO DAILY 07/23/21 07/23/21 release rosuvastatin 10 mg tablet 1 tab PO BEDTIME 07/23/21 Previous Rx's Medication Instructions Recorded ibuprofen 600 mg tablet 600 mg PO TID PRN pain #20 tabs 06/07/21 azithromycin 500 mg tablet 500 mg PO Q24H #5 tabs 07/25/21 cefuroxime axetil 500 mg tablet 500 mg PO BID #10 tabs 07/25/21 prednisone 10 mg tablet 40 mg PO DAILY #16 tabs 07/25/21 albuterol sulfate 90 mcg/actuation 2 puff inhalation Q4-6H PRN 06/17/22 aerosol inhaler shortness of breath or wheezing #6.7 grams prednisone 20 mg tablet 40 mg PO DAILY 4 days #8 tabs 06/17/22 Allergies Allergy/AdvReac Type Severity Reaction Status Date / Time seafood Allergy Mild Rash Verified 07/19/21 14:04 Review of Systems Review of Systems: Constitutional : No Fever, No Chills ENT/Mouth : No Hoarseness, No sore throat, No Rhinorrhea Eyes: No Redness, No Discharge, No Vision Changes Cardiovascular : Positive Chest Pain, positive SOB, no Dyspnea on Exertion, No Edema Respiratory : positive Cough, positive Sputum, positive Wheezing, Gastrointestinal : No Nausea, No Vomiting, No Diarrhea, No abdominal Pain Genitourinary : No Dysuria, No Hematuria Musculoskeletal : No joint pain, No Myalgias Skin : No rash Neuro : No Weakness, No Numbness, No Headache Psych : No anxiety, depression Heme/Lymph: No Bruising, No Bleeding Yes all other systems are reviewed and are negative [facility] Past Medical History Attestation statement: The following information was validated with the patient. Source: old records reviewed Medical History Asthma GERD (gastroesophageal reflux disease) HLD (hyperlipidemia) Surgical History History of appendectomy Family History Family History Brother Diabetes Social History Social History Household Members: Spouse Housing: Condominium Patient Tobacco Use Status: Former Tobacco user Advance Directives: No Advance Directives Information Provided: No service: No Current occupational status: disabled Current occupation: rt hand Physical Exam Vital Signs: Vital Signs: Last Vital Signs Temp 98.1 F 06/17/22 11:46 Pulse 79 06/17/22 11:46 Resp 18 06/17/22 11:46 BP 106/80 06/17/22 11:46 Pulse Ox 94 06/17/22 11:46 O2 Del Method 06/17/22 11:46 BMI result Body Mass Index 26.6 Appearance: Alert.?Oriented to person, place and time. No acute distress.?Normal affect. Eyes: Pupils equal, round and reactive to light.? ENT: Pharynx normal.?? Neck: Normal inspection.? Neck supple.?? CVS: Heart sounds normal. Normal heart rate and rhythm.? Pulses normal.?? Respiratory: No respiratory distress.? Lung sounds with rhonchi and wheezing bilaterally. Palpable chest wall tender Abdomen: Soft and non-tender. Skin: Skin warm and dry.? Normal skin color.? Extremities: No lower extremity edema.? No calf ttp? Neuro: Moves all extremities spontaneously. Sensation intact bilaterally. No focal neuro deficits. Ambulates with normal steady gait. Course Course Course Narrative: A 57-year-old male with a past medical history of asthma, hyperlipidemia, who presents emergency department for concern of asthma exacerbation with chest discomfort. The time of examination he is overall well-appearing. Vital signs are stable. Afebrile without tachycardia or hypoxia. Does have rhonchi and expiratory wheezing bilaterally upon auscultation. Chest wall tenderness. Symptoms overall concerning for asthma exacerbation with acute costochondritis. Patient to receive prednisone orally, declines nebulizer or inhaler while in the ED, will obtain basic labs, troponin, EKG, and chest x-ray as well. Reevaluation(s) Reevaluation #1: CBC reveals a very mild leukocytosis 11.8, CMP overall unremarkable. COVID-19 and influenza testing are negative. Troponin 3.6, EKG reveals normal sinus rhythm without acute ischemic findings, unlikely ACS. Without acute cardiopulmonary process. Suspect symptoms to be secondary to asthma exacerbation and acute costochondritis. Discharged home with course of prednisone, new prescription for albuterol inhaler, reviewed worrisome signs and symptoms to return back to emergency department for, outpatient follow-up with primary care provider within 3 days. All questions answered. Patient discharged home in stable condition, no apparent respiratory distress. Time: 11:48 Medications Administered Discontinued Medications Generic Name Dose Route Start Last Admin Trade Name Freq PRN Reason Stop Dose Admin Prednisone 40 mg 06/17/22 11:23 06/17/22 11:27 Prednisone 20 Mg Tablet PO 06/17/22 11:24 40 mg ONCE ONE Administration MDM - SOB/Dyspnea Medical Records Attestation: I reviewed the patient's medical records. Lab Data Attestation: I reviewed the patient's lab results. Result diagrams: 06/17/22 10:53 06/17/22 10:53 Labs: Lab Results 11/18/22 11/18/22 11/18/22 Range/Units 10:53 10:53 10:53 WBC 11.8 H (4.8-10.8) X10*3/uL RBC 4.97 (4.60-5.80) X10*6/uL Hgb 14.4 (14.0-18.0) g/dl Hct 43.8 (42.0-52.0) % MCV 88.1 (80.0-98.0) fL MCH 29.0 (27.0-33.0) pg MCHC 32.9 (31.0-36.0) g/dl RDW 13.5 (11.0-16.0) % Plt Count 470 H (160-400) X10*3/uL MPV 9.5 (9.4-12.4) fL Immature Gran % (Auto) 0.3 (0.0-0.4) % Neut % (Auto) 77.3 H (45-73) % Lymph % (Auto) 9.7 L (20-40) % [place] % (Auto) 8.3 (2-11) % Eos % (Auto) 4.1 H (0-4) % Baso % (Auto) 0.3 (0-2) % Lymph # (Auto) 1.2 (1.2-4.9) X10*3/uL [place] # (Auto) 1.0 (0.1-1.2) X10*3/uL Eos # (Auto) 0.5 H (0.0-0.4) X10*3/uL Baso # (Auto) 0.0 (0.0-0.2) X10*3/uL Abs Immat Gran (auto) 0.03 (0.00-0.03) X10*3/uL Absolute Neuts (auto) 9.2 H (2.0-8.3) x10*3/uL Absolute Nucleated RBC 0.000 (0.0-0.012) X10*3/uL Nucleated RBC % (auto) 0.0 (0.0-0.2) /100WBC Sodium 142 (135-145) mmol/L Potassium 4.6 (3.3-5.1) mmol/L Chloride 105 (96-108) mmol/L Carbon Dioxide 24 (22-29) mmol/L Anion Gap 18 (12-20) BUN 18 H (9-16) mg/dL Creatinine 1.07 (0.5-1.4) mg/dL Estim Creat Clear Calc 72.8 Estimated GFR > 60 Random Glucose 102 (60-115) mg/dL Calcium 9.6 (8.4-10.2) mg/dL Total Bilirubin 0.7 (0.0-1.0) mg/dL AST 26 (5-37) U/L ALT 22 (0-40) U/L Alkaline Phosphatase 163 H D (39-117) U/L Troponin I High Sens 3.6 (<3.5-35.0) ng/L Total Protein 7.4 (6.5-8.0) g/dL COVID-19 (FELIX) (Negative) COVID-19 Clin Com Influenza Type A (DIANA) (Negative) Influenza Type B (DIANA) (Negative) Influenza A & B Note 06/17/22 06/17/22 Range/Units 10:53 10:53 WBC (4.8-10.8) X10*3/uL RBC (4.60-5.80) X10*6/uL Hgb (14.0-18.0) g/dl Hct (42.0-52.0) % MCV (80.0-98.0) fL MCH (27.0-33.0) pg MCHC (31.0-36.0) g/dl RDW (11.0-16.0) % Plt Count (160-400) X10*3/uL MPV (9.4-12.4) fL Immature Gran % (Auto) (0.0-0.4) % Neut % (Auto) (45-73) % Lymph % (Auto) (20-40) % [place] % (Auto) (2-11) % Eos % (Auto) (0-4) % Baso % (Auto) (0-2) % Lymph # (Auto) (1.2-4.9) X10*3/uL [place] # (Auto) (0.1-1.2) X10*3/uL Eos # (Auto) (0.0-0.4) X10*3/uL Baso # (Auto) (0.0-0.2) X10*3/uL Abs Immat Gran (auto) (0.00-0.03) X10*3/uL Absolute Neuts (auto) (2.0-8.3) x10*3/uL Absolute Nucleated RBC (0.0-0.012) X10*3/uL Nucleated RBC % (auto) (0.0-0.2) /100WBC Sodium (135-145) mmol/L Potassium (3.3-5.1) mmol/L Chloride (96-108) mmol/L Carbon Dioxide (22-29) mmol/L Anion Gap (12-20) BUN (9-16) mg/dL Creatinine (0.5-1.4) mg/dL Estim Creat Clear Calc Estimated GFR Random Glucose (60-115) mg/dL Calcium (8.4-10.2) mg/dL Total Bilirubin (0.0-1.0) mg/dL AST (5-37) U/L ALT (0-40) U/L Alkaline Phosphatase (39-117) U/L Troponin I High Sens (<3.5-35.0) ng/L Total Protein (6.5-8.0) g/dL COVID-19 (FELIX) Negative (Negative) COVID-19 Clin Com See Note Influenza Type A (DIANA) Negative (Negative) Influenza Type B (DIANA) Negative (Negative) Influenza A & B Note See Note Imaging Data Chest x-ray: My impression: No acute process, no infiltrates or consolidation. Radiologist's impression: XR/XR chest 2V IMPRESSION: Clear lungs ECG Data Attestation: I personally reviewed and interpreted this ECG as follows: ECG interpretation date: 06/17/22 Prior ECG tracings: available for review Interpretation: Rate: 96 Rhythm:? Normal sinus rhythm Normal P waves.? Normal AYAZ.?? Normal QRS complex.?? ST T wave :??No ST elevation, no ST depression, no T-wave inversion qTC: 447 prior studies:? June 2021 The study has been interpreted contemporaneously by me. Discharge Plan Discharge Clinical Impression: Asthma with exacerbation, Acute costochondritis Patient Disposition: Home, Self-Care Instructions: Asthma (ED), Costochondritis (ED) Additional Instructions: Discussed, your blood work was overall normal today, your EKG was normal, your chest x-ray was normal. A new prescription for your inhaler was sent to your pharmacy, in addition to prednisone to take once a day for the next 4 days. Be sure to rest, stay well hydrated drinking plenty of fluids, eat small frequent meals. Tylenol/ibuprofen can be used as needed for fever/pain. [id number] cold medications may be helpful as well for symptoms, cough syrups. Saline nasal spray, humidifier may be helpful for nasal congestion. You may return to the emergency department with any new or worsening symptoms or concerns. Follow-up with your primary care provider within the next 3 days. Prescriptions: New albuterol sulfate 90 mcg/actuation HFA aerosol inhaler 2 puff inhalation Q4-6H PRN (Reason: shortness of breath or wheezing) Qty: 6.7 0RF prednisone 20 mg tablet 40 mg PO DAILY 4 Days Qty: 8 0RF No Action ibuprofen 600 mg tablet 600 mg PO TID PRN (Reason: pain) Qty: 20 0RF omeprazole 40 mg capsule,delayed release(DR/EC) 1 cap PO DAILY albuterol sulfate 90 mcg/actuation HFA aerosol inhaler 2 puff inhalation Q4H PRN (Reason: Wheezing) rosuvastatin 10 mg tablet 1 tab PO BEDTIME budesonide-formoterol [Symbicort] 160-4.5 mcg/actuation HFA aerosol inhaler 1 puff inhalation BID albuterol sulfate 1.25 mg/3 mL Solution For Nebulization 2.5 mg INHALATION BID PRN (Reason: Wheezing) cefuroxime axetil 500 mg tablet 500 mg PO BID Qty: 10 0RF prednisone 10 mg tablet 40 mg PO DAILY Qty: 16 0RF azithromycin 500 mg Tablet 500 mg PO Q24H Qty: 5 0RF Referrals: Vandana Can MD [Primary Care Provider] -
[2022-06-17] MEDS: predniSONE 20 MG TABLET 40 MG PO (11:27)
[2022-06-17 11:28] LABS: IDNOW Serial# 9DB6401D; Influenza A Negative (Negative); Influenza B2 Negative (Negative)
[2022-06-17 11:29] LABS: Troponin-I High Sensitivity 3.6 ng/L (<3.5-35.0)
[2022-06-17 11:30] LABS: Alanine Aminotransferase 22 U/L (0-40); Alkaline Phosphatase 163 U/L (39-117); Anion Gap 18 (12-20); Aspartate Amino Transferase 26 U/L (5-37); Bilirubin Total 0.7 mg/dL (0.0-1.0); Blood Urea Nitrogen 18 mg/dL (9-16); Calcium 9.6 mg/dL (8.4-10.2); Carbon Dioxide 24 mmol/L (22-29); Chloride 105 mmol/L (96-108); Creatinine Clr Calc Pharmacy 72.8; Estimated Glomerular Filt Rate > 60; Glucose Random 102 mg/dL (60-115); Potassium 4.6 mmol/L (3.3-5.1); Sodium 142 mmol/L (135-145); Total Protein 7.4 g/dL (6.5-8.0)
[2022-06-17 11:46] VITALS: BP 106/80; PULSE 79; RESP 18; TEMP 36.7; O2SAT 94
[2022-06-17 12:56] LABS: Albumin Level 4.1 g/dL (3.5-5.0)
== END 2022-06-17 11:52 | disposition home or self-care (01) ==
PROVIDERS: Nurse Practitioner Family; Emergency Provider Emergency Medicine Emergency Medical Services; PCP Internal Medicine
DX: J45.901 Unspecified asthma with (acute) exacerbation (principal); M94.0 Chondrocostal junction syndrome [Tietze]; R06.00 Dyspnea, unspecified; R07.89 Other chest pain; R06.02 Shortness of breath; R05.9 Cough, unspecified; Z20.822 Contact with and (suspected) exposure to COVID-19; Z79.899 Other long term (current) drug therapy
CPT/HCPCS: 71046; 80053; 84484; 85025; 87502; 87635; 93005; 99284

== ENCOUNTER 2022-06-24 09:30 | Emergency (ER) | payer MEDICARE, SELFPAY ==
--- NOTE | ~2022-06-24 | CT_ITS ---
EXAMINATION: CT ANGIOGRAM OF THE CHEST WITH AND WITHOUT CONTRAST (CT PULMONARY ANGIOGRAM FOR PE) CLINICAL INFORMATION: Reason for Exam dizziness, cough, elevated d dimer COMPARISON: None TECHNIQUE: Prior to contrast administration, noncontrast localization images were obtained. Subsequently, multidetector volumetric imaging was performed from the thoracic inlet to below the diaphragms following the administration of 65 mL Omnipaque 350 intravenous contrast. No contrast reaction reported Sagittal, coronal, and MIP oblique sagittal reformatted images were obtained on the CT workstation, uploaded to PACS, and reviewed. This CT examination was performed using dose optimization techniques as appropriate, variously including the following: *Automated exposure control *Adjustment of mA and/or kV according to patient size (this includes techniques or standardized protocols for targeted exams where dose is matched to indication/reason for exam; i.e. extremities or head) *Use of iterative reconstruction technique Total exam dose-length product 330 mGy-cm FINDINGS: QUALITY OF STUDY/CONTRAST BOLUS: Satisfactory. PULMONARY ARTERIES: No central or segmental pulmonary emboli. THORACIC AORTA: No aneurysm or dissection. LUNG: There is generalized bronchial wall thickening bilaterally. Endoluminal opacification is seen within the more peripheral bronchi, more notably in the lower lobes. Subtle tree-in-bud opacities are evident within the right upper lobe and the medial segments of the lower lobes bilaterally. No dense airspace consolidation. A few tree-in-bud opacities are also evident at the apices. No solid pulmonary nodules measuring greater than 2 mm in diameter. PLEURA: No pleural effusion or pneumothorax. MEDIASTINUM: Normal heart size. No pericardial effusion. No evidence of septal bowing or right heart strain. Trace pericardial effusion. There is a enlarged 1.3 cm right lower paratracheal lymph node. There is a 1 cm right hilar lymph node. A 0.8 cm left hilar lymph node is noted. A 1 cm left AP window lymph node is noted. CHEST WALL/AXILLA: No axillary or internal mammary lymphadenopathy. OSSEOUS STRUCTURES: Minimal degenerative disc disease in the thoracic spine. No central canal stenoses. UPPER ABDOMEN: There is mild median arcuate ligament compression of the celiac axis at the origin. Additionally, there is abnormal morphology of the celiac axis and common hepatic artery with luminal irregularity, particularly at the component which terminates at the left hepatic artery. Prominent pancreaticoduodenal arteries are also noted, supplying the right hepatic artery. A dissection flap is suspected on coronal images ( series 14). No reflux of contrast into the hepatic veins to suggest elevated right heart pressures. CT/CT angio chest PE protocol IMPRESSION: 1. No evidence of pulmonary emboli. 2. Diffuse bronchial wall thickening with endobronchial opacification and tree-in-bud opacities in the right upper lobe and bilateral lower lobes, most consistent with an infectious or inflammatory bronchitis/bronchiolitis. No dense airspace consolidation. 3. Mild mediastinal and hilar adenopathy, likely reactive in nature. 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 VTE: negative
--- NOTE | ~2022-06-24 | XR_ITS ---
EXAMINATION: XR CHEST CLINICAL INFORMATION: Shortness of breath COMPARISON: 06/17/2022 TECHNIQUE: 2 views of the chest were obtained. FINDINGS: Lungs are well expanded. No pneumothorax or pleural effusion. No airspace disease. There is an equivocal finding of a few small nodular opacities at lung apices. Cardiac silhouette has normal size and contour. The visualized bones are intact. The examined upper abdomen is normal. XR/XR chest 2V IMPRESSION: No evidence of congestive heart failure or airspace disease. Question presence of a few small nodules at lung apices; in the acute setting, consider possibility of inflammatory or infectious nodules.
--- NOTE | 2022-06-24 09:37 | ED.GENADULT ---
HPI - General Adult General Chief complaint: General Medical Stated complaint: dizzy, cough, headache Time Seen by Provider: 06/24/22 09:37 Source: patient Mode of arrival: ambulatory Limitations: no limitations History of Present Illness HPI narrative: Patient is a 57 year old assigned male at with no reported medical history presenting to the emergency department today with a worsening cough. Patient states that over the last few days he has had a worsening cough. Patient denies any current dizziness, lightheadedness, abdominal pain, nausea, vomiting, fever, chills, blurry vision, double vision, loss of vision, chest pain, difficulty breathing, shortness of breath, back pain, night sweats, pain with urination, increased urinary frequency, increased urinary urgency, blood in his urine or stool, syncope or a near syncopal episode, recent trauma or falls, bowel incontinence, bladder incontinence, bowel retention, bladder retention, or any other complaints at this time. Onset (ago): day(s) Severity: mild Severity scale (1-10): 2 Relieving factors: none Exacerbating factors: none Associated symptoms: cough Treatments prior to arrival: none Related Data Home Medications Medication Instructions Recorded Confirmed albuterol sulfate 1.25 mg/3 mL 2.5 mg inhalation BID PRN Wheezing 07/23/21 07/23/21 solution for nebulization albuterol sulfate 90 mcg/actuation 2 puff inhalation Q4H PRN Wheezing 07/23/21 07/23/21 aerosol inhaler budesonide-formoterol HFA 160 1 puff inhalation BID 07/23/21 07/23/21 mcg-4.5 mcg/actuation aerosol inhaler (Symbicort) omeprazole 40 mg capsule,delayed 1 cap PO DAILY 07/23/21 07/23/21 release rosuvastatin 10 mg tablet 1 tab PO BEDTIME 07/23/21 Previous Rx's Medication Instructions Recorded ibuprofen 600 mg tablet 600 mg PO TID PRN pain #20 tabs 06/07/21 azithromycin 500 mg tablet 500 mg PO Q24H #5 tabs 07/25/21 cefuroxime axetil 500 mg tablet 500 mg PO BID #10 tabs 07/25/21 prednisone 10 mg tablet 40 mg PO DAILY #16 tabs 07/25/21 albuterol sulfate 90 mcg/actuation 2 puff inhalation Q4-6H PRN 06/17/22 aerosol inhaler shortness of breath or wheezing #6.7 grams prednisone 20 mg tablet 40 mg PO DAILY 4 days #8 tabs 06/17/22 Allergies Allergy/AdvReac Type Severity Reaction Status Date / Time seafood Allergy Mild Rash Verified 07/19/21 14:04 Review of Systems Constitutional: Constitutional: Reports no additional constitutional complaints, Denies chills, Denies fever(s) and Denies night sweats Eyes: Eyes: Reports no additional eye complaints, Denies blurry vision, Denies change in vision, Denies diplopia, Denies eye discharge, Denies loss of vision and Denies eye pain ENT: Denies dizziness Cardiovascular: Cardiovascular: Reports no additional cardiovascular complaints, Denies chest pain, Denies lightheadedness, Denies Loss of Consciousness and Denies dyspnea Respiratory: Respiratory: Reports no additional respiratory complaints, Reports cough and Denies dyspnea Gastrointestinal: Gastrointestinal: Reports no additional gastrointestinal complaints, Denies abdominal pain, Denies melena, Denies hematochezia, Denies change in bowel habits and Denies change in stool character Genitourinary: Genitourinary: Reports no additional male genitourinary complaints, Denies hematuria, Denies oliguria, Denies difficulty urinating, Denies dysuria, Denies urinary frequency, Denies urinary hesitancy, Denies urinary incontinence and Denies urinary urgency Musculoskeletal: Musculoskeletal: Reports no additional musculoskeletal complaints, Denies numbness and Denies tingling Neurologic: Denies dizziness, Denies loss of vision, Denies numbness and Denies tingling Psychiatric: Psychiatric: Reports no additional psychiatric complaints Endocrine: Endocrine: Reports no additional endocrine complaints Hematologic/Lymphatic: Hematologic/Lymphatic: Reports no additional hematologic/lymphatic complaints Allergic/Immunologic: Allergic/Immunologic: Reports no additional allergic/immunologic complaints [facility] Past Medical History Attestation statement: The following information was validated with the patient. Source: old records reviewed Medical History Asthma GERD (gastroesophageal reflux disease) HLD (hyperlipidemia) Surgical History History of appendectomy Family History Family History Brother Diabetes Social History Social History Household Members: Spouse Housing: Condominium Patient Tobacco Use Status: Former Tobacco user Advance Directives: No service: No Current occupational status: disabled Current occupation: rt hand Physical Exam ED Vital Signs: Vital Signs - 24 hr 06/24/22 09:44 06/24/22 11:47 Temperature 98.6 F 98.3 F Pulse Rate 100 81 Respiratory Rate 16 18 Blood Pressure 129/74 103/52 L Pulse Oximetry 96 94 Oxygen Delivery Method Room Air Room Air BMI result Body Mass Index 25.0 Const General: cooperative, no acute distress, alert and awake Nutritional Appearance: well nourished Orientation/consciousness: patient oriented x3 Limitations: no limitations HENMT Head: Yes normal to inspection and Yes atraumatic Ears: hearing grossly normal bilaterally and external ears normal General nose exam: Normal external nose present, no nasal discharge noted and no epistaxis Face and sinus: Yes normal facial exam, No abrasion and No laceration Mouth: Normal oral and palatal mucosa present, no drooling and no muffled voice Eyes General: appearance normal, both eyes and all related structures Periorbital: periorbital findings normal Eyelids: Yes eyelids normal Conjunctivae: conjunctivae normal Pupils: Equal, round and reactive pupils present EOM: EOMs intact bilaterally Neck Neck: Yes normal visual inspection, Yes full ROM and Yes no lymphadenopathy Chest Chest palpation & inspection: normal inspection of the chest Resp Effort & Inspection: normal respiratory effort, able to speak in complete sentences and Actively coughing Auscultation: clear to auscultation bilaterally Cardio Rate: regular rate Rhythm: regular rhythm GI Inspection: Yes normal to inspection Neuro General: patient oriented x3 and moves all extremities Cranial nerves: Yes Equal, round and reactive pupils present Cognition (Neuro): normal cognition Motor exam (neuro): 5/5 motor strength present throughout Sensory Exam: Normal double simultaneous stimulation for sensation Coordination: [id number] test normal Extrem General: Yes normal to inspection, Yes full ROM and Yes capillary refill normal Psych Appearance: grossly normal Mental Status: mental status grossly normal Affect: normal affect Attitude: cooperative Thought process: Normal thought process present Thought content: Normal thought content present Insight: Good insight present (Psych) Medications Administered Discontinued Medications Generic Name Dose Route Start Last Admin Trade Name Freq PRN Reason Stop Dose Admin Iohexol 100 ml 06/24/22 11:43 06/24/22 11:43 Iohexol 350 Mg/Ml 100 Ml Infus..Btl IV 06/24/22 11:44 65 ml ONCE ONE Administration Ketorolac Tromethamine 15 mg 06/24/22 09:48 06/24/22 10:06 Ketorolac Tromethamine 15 Mg/Ml Vial IM 06/24/22 09:49 15 mg ONCE ONE Administration Ondansetron HCl 4 mg 06/24/22 09:48 06/24/22 10:06 Ondansetron Odt 4 Mg Tab.Rapdis TRANSLINGU 06/24/22 09:49 4 mg ONCE ONE Administration Medical Decision Making MDM Narrative Medical decision making narrative: Patient is a 57 year old assigned male at with no reported medical history presenting to the emergency department today with a worsening cough. Patient's physical exam was unremarkable. Patient's blood work showed a slightly elevated d dimer of 244. Patient's chest x-ray and chest CT PE showed no acute process. Patient's influenza swab was positive. I explained my physical exam findings as well as all test results to the patient. I answered all questions asked by the patient. I stressed the importance of the patient taking his medication as prescribed. I stressed the importance of the patient following up with his primary care provider. I stressed the importance of the patient returning to the emergency department immediately if his symptoms were to worsen or if he were to develop any dizziness, shortness of breath, difficulty breathing, chest pain, blurry vision, loss of vision, nausea, vomiting, abdominal pain, fever, chills, back pain, or any other complaints. Patient verbalized agreement and understanding with this treatment plan and discharge. Medical Records Medical records reviewed: Yes I reviewed the patient's medical records. Lab Data Lab results reviewed: Yes I reviewed the patient's lab results. Result diagrams: 06/24/22 09:57 06/24/22 09:57 Labs: Lab Results 06/24/22 06/24/22 06/24/22 Range/Units 09:50 09:57 09:57 WBC 10.8 (4.8-10.8) X10*3/uL RBC 5.04 (4.60-5.80) X10*6/uL Hgb 14.3 (14.0-18.0) g/dl Hct 42.7 (42.0-52.0) % MCV 84.7 (80.0-98.0) fL MCH 28.4 (27.0-33.0) pg MCHC 33.5 (31.0-36.0) g/dl RDW 13.5 (11.0-16.0) % Plt Count 489 H (160-400) X10*3/uL MPV 9.4 (9.4-12.4) fL Immature Gran % (Auto) 0.4 (0.0-0.4) % Neut % (Auto) 79.2 H (45-73) % Lymph % (Auto) 10.2 L (20-40) % Cooke % (Auto) 9.3 (2-11) % Eos % (Auto) 0.6 (0-4) % Baso % (Auto) 0.3 (0-2) % Lymph # (Auto) 1.1 L (1.2-4.9) X10*3/uL Cooke # (Auto) 1.0 (0.1-1.2) X10*3/uL Eos # (Auto) 0.1 (0.0-0.4) X10*3/uL Baso # (Auto) 0.0 (0.0-0.2) X10*3/uL Abs Immat Gran (auto) 0.04 H (0.00-0.03) X10*3/uL Absolute Neuts (auto) 8.6 H (2.0-8.3) x10*3/uL Absolute Nucleated RBC 0.000 (0.0-0.012) X10*3/uL Nucleated RBC % (auto) 0.0 (0.0-0.2) /100WBC D-Dimer High Sensitivty 244 NG/ML Sodium (135-145) mmol/L Potassium (3.3-5.1) mmol/L Chloride (96-108) mmol/L Carbon Dioxide (22-29) mmol/L Anion Gap (12-20) BUN (9-16) mg/dL Creatinine (0.5-1.4) mg/dL Estim Creat Clear Calc Estimated GFR Random Glucose (60-115) mg/dL Calcium (8.4-10.2) mg/dL Total Bilirubin (0.0-1.0) mg/dL AST (5-37) U/L ALT (0-40) U/L Alkaline Phosphatase (39-117) U/L Troponin I High Sens (<3.5-35.0) ng/L Total Protein (6.5-8.0) g/dL Albumin (3.5-5.0) g/dL Influenza Type A (PCR) POSITIVE A (Negative) Influenza Type B (PCR) NEGATIVE (Negative) RSV RNA Qual (PCR) NEGATIVE (Negative) SARS-CoV-2 RNA (RT-PCR) NEGATIVE (Negative) 06/24/22 06/24/22 Range/Units 09:57 09:57 WBC (4.8-10.8) X10*3/uL RBC (4.60-5.80) X10*6/uL Hgb (14.0-18.0) g/dl Hct (42.0-52.0) % MCV (80.0-98.0) fL MCH (27.0-33.0) pg MCHC (31.0-36.0) g/dl RDW (11.0-16.0) % Plt Count (160-400) X10*3/uL MPV (9.4-12.4) fL Immature Gran % (Auto) (0.0-0.4) % Neut % (Auto) (45-73) % Lymph % (Auto) (20-40) % Cooke % (Auto) (2-11) % Eos % (Auto) (0-4) % Baso % (Auto) (0-2) % Lymph # (Auto) (1.2-4.9) X10*3/uL Cooke # (Auto) (0.1-1.2) X10*3/uL Eos # (Auto) (0.0-0.4) X10*3/uL Baso # (Auto) (0.0-0.2) X10*3/uL Abs Immat Gran (auto) (0.00-0.03) X10*3/uL Absolute Neuts (auto) (2.0-8.3) x10*3/uL Absolute Nucleated RBC (0.0-0.012) X10*3/uL Nucleated RBC % (auto) (0.0-0.2) /100WBC D-Dimer High Sensitivty NG/ML Sodium 137 (135-145) mmol/L Potassium 4.4 (3.3-5.1) mmol/L Chloride 101 (96-108) mmol/L Carbon Dioxide 24 (22-29) mmol/L Anion Gap 16 (12-20) BUN 22 H (9-16) mg/dL Creatinine 1.31 (0.5-1.4) mg/dL Estim Creat Clear Calc 59.4 Estimated GFR 56 Random Glucose 116 H (60-115) mg/dL Calcium 9.2 (8.4-10.2) mg/dL Total Bilirubin 0.7 (0.0-1.0) mg/dL AST 35 (5-37) U/L ALT 30 (0-40) U/L Alkaline Phosphatase 137 H (39-117) U/L Troponin I High Sens 7.2 D (<3.5-35.0) ng/L Total Protein 7.2 (6.5-8.0) g/dL Albumin 3.9 (3.5-5.0) g/dL Influenza Type A (PCR) (Negative) Influenza Type B (PCR) (Negative) RSV RNA Qual (PCR) (Negative) SARS-CoV-2 RNA (RT-PCR) (Negative) Imaging Data Chest x-ray: Attestation: I personally reviewed and interpreted this imaging study as follows: My impression: No acute process. Radiologist's impression: EXAMINATION: XR CHEST CLINICAL INFORMATION: Shortness of breath COMPARISON: 06/17/2022 TECHNIQUE: 2 views of the chest were obtained. FINDINGS: Lungs are well expanded. No pneumothorax or pleural effusion. No airspace disease. There is an equivocal finding of a few small nodular opacities at lung apices. Cardiac silhouette has normal size and contour. The visualized bones are intact. The examined upper abdomen is normal. XR/XR chest 2V IMPRESSION: No evidence of congestive heart failure or airspace disease. ? Question presence of a few small nodules at lung apices; in the acute setting, consider possibility of inflammatory or infectious nodules. Dictated By: Justice Howell MD Signed By: Electronically signed by Justice Howell MD 06/24/[address] scan - chest: Attestation: I personally reviewed and interpreted this imaging study as follows: My impression: No PE. Radiologist's impression: EXAMINATION: CT ANGIOGRAM OF THE CHEST WITH AND WITHOUT CONTRAST (CT PULMONARY ANGIOGRAM FOR PE) CLINICAL INFORMATION: Reason for Exam dizziness, cough, elevated d dimer COMPARISON: None? TECHNIQUE: Prior to contrast administration, noncontrast localization images were obtained. ? Subsequently, multidetector volumetric imaging was performed from the thoracic inlet to below the diaphragms following the administration of 65 mL Omnipaque 350 intravenous contrast. No contrast reaction reported Sagittal, coronal, and MIP oblique sagittal reformatted images were obtained on the CT workstation, uploaded to PACS, and reviewed. This CT examination was performed using dose optimization techniques as appropriate, variously including the following: *Automated exposure control *Adjustment of mA and/or kV according to patient size (this includes techniques or standardized protocols for targeted exams where dose is matched to indication/reason for exam; i.e. extremities or head) *Use of iterative reconstruction technique Total exam dose-length product 330 mGy-cm FINDINGS: QUALITY OF STUDY/CONTRAST BOLUS: Satisfactory. PULMONARY ARTERIES: No central or segmental pulmonary emboli.? THORACIC AORTA: No aneurysm or dissection. LUNG: There is generalized bronchial wall thickening bilaterally. Endoluminal opacification is seen within the more peripheral bronchi, more notably in the lower lobes. Subtle tree-in-bud opacities are evident within the right upper lobe and the medial segments of the lower lobes bilaterally. No dense airspace consolidation. A few tree-in-bud opacities are also evident at the apices. No solid pulmonary nodules measuring greater than 2 mm in diameter. PLEURA: No pleural effusion or pneumothorax. MEDIASTINUM: Normal heart size.? No pericardial effusion. No evidence of septal bowing or right heart strain. Trace pericardial effusion. There is a enlarged 1.3 cm right lower paratracheal lymph node. There is a 1 cm right hilar lymph node. A 0.8 cm left hilar lymph node is noted. A 1 cm left AP window lymph node is noted. CHEST WALL/AXILLA: No axillary or internal mammary lymphadenopathy. OSSEOUS STRUCTURES: Minimal degenerative disc disease in the thoracic spine. No central canal stenoses. UPPER ABDOMEN: There is mild median arcuate ligament compression of the celiac axis at the origin. Additionally, there is abnormal morphology of the celiac axis and common hepatic artery with luminal irregularity, particularly at the component which terminates at the left hepatic artery. Prominent pancreaticoduodenal arteries are also noted, supplying the right hepatic artery. A dissection flap is suspected on coronal images (/ series 14). No reflux of contrast into the hepatic veins to suggest elevated right heart pressures. CT/CT angio chest PE protocol IMPRESSION: 1.? No evidence of pulmonary emboli. 2.? Diffuse bronchial wall thickening with endobronchial opacification and tree-in-bud opacities in the right upper lobe and bilateral lower lobes, most consistent with an infectious or inflammatory bronchitis/bronchiolitis. No dense airspace consolidation. 3.? Mild mediastinal and hilar adenopathy, likely reactive in nature. 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 ? VTE: negative Signed By: Electronically signed 06/24/22 1231 Discharge Plan Discharge Clinical Impression: Influenza Patient Disposition: Home, Self-Care Instructions: Influenza (ED) Additional Instructions: Follow up with your primary care provider. Return to the emergency department immediately if your symptoms worsen or if you develop any dizziness, shortness of breath, difficulty breathing, chest pain, blurry vision, loss of vision, nausea, vomiting, abdominal pain, fever, chills, back pain, or any other complaints. Prescriptions: No Action ibuprofen 600 mg tablet 600 mg PO TID PRN (Reason: pain) Qty: 20 0RF omeprazole 40 mg capsule,delayed release(DR/EC) 1 cap PO DAILY albuterol sulfate 90 mcg/actuation HFA aerosol inhaler 2 puff inhalation Q4H PRN (Reason: Wheezing) rosuvastatin 10 mg tablet 1 tab PO BEDTIME budesonide-formoterol [Symbicort] 160-4.5 mcg/actuation HFA aerosol inhaler 1 puff inhalation BID albuterol sulfate 1.25 mg/3 mL Solution For Nebulization 2.5 mg INHALATION BID PRN (Reason: Wheezing) cefuroxime axetil 500 mg tablet 500 mg PO BID Qty: 10 0RF prednisone 10 mg tablet 40 mg PO DAILY Qty: 16 0RF azithromycin 500 mg Tablet 500 mg PO Q24H Qty: 5 0RF albuterol sulfate 90 mcg/actuation HFA aerosol inhaler 2 puff inhalation Q4-6H PRN (Reason: shortness of breath or wheezing) Qty: 6.7 0RF prednisone 20 mg tablet 40 mg PO DAILY 4 Days Qty: 8 0RF Referrals: [facility] [place] [facility] [Provider Group] (Call to establish and follow up with a primary care provider. If you already have a primary care provider, please follow up with them. ) [facility] [place] [facility], [place] [Provider Group] (Call to establish and follow up with a primary care provider. If you already have a primary care provider, please follow up with them. ) [facility] [place] Primary [facility],[place] [Provider Group] (Call to establish and follow up with a primary care provider. If you already have a primary care provider, please follow up with them. ) Stand Alone Forms: Work/School Release Print Language: Maori
[2022-06-24 09:44] VITALS: BP 129/74; PULSE 100; RESP 16; TEMP 37; O2SAT 96; BMI 25.0
[2022-06-24 10:04] LABS: MANUAL DIFF FLAG NO
[2022-06-24 10:05] LABS: Basophils Percent Auto 0.3 % (0-2); Eosinophils Absolute Auto 0.1 X10*3/uL (0.0-0.4); Eosinophils Percent Auto 0.6 % (0-4); Hematocrit 42.7 % (42.0-52.0); Hemoglobin 14.3 g/dl (14.0-18.0); Imm Gran Abs Auto 0.04 X10*3/uL (0.00-0.03); Imm Gran Pct Auto 0.4 % (0.0-0.4); Lymphocytes Absolute Auto 1.1 X10*3/uL (1.2-4.9); Lymphocytes Percent Auto 10.2 % (20-40); Mean Corpuscular HGB Conc 33.5 g/dl (31.0-36.0); Mean Corpuscular Hemoglobin 28.4 pg (27.0-33.0); Mean Corpuscular Volume 84.7 fL (80.0-98.0); Mean Platelet Volume 9.4 fL (9.4-12.4); Monocytes Percent Auto 9.3 % (2-11); Neutrophils Absolute Auto 8.6 x10*3/uL (2.0-8.3); Neutrophils Percent Auto 79.2 % (45-73); Platelet Count 489 X10*3/uL (160-400); Red Blood Count 5.04 X10*6/uL (4.60-5.80); Red Cell Distribution Width 13.5 % (11.0-16.0); White Blood Count 10.8 X10*3/uL (4.8-10.8)
[2022-06-24] MEDS: Ketorolac Tromethamine 15 MG/ML VIAL IM (10:06)
[2022-06-24] MEDS: Ondansetron ODT 4 MG TAB.RAPDIS TRANSLINGU (10:06)
[2022-06-24 10:14] LABS: D Dimer High Sensitivity 244 NG/ML
[2022-06-24 10:36] LABS: Alanine Aminotransferase 30 U/L (0-40); Albumin Level 3.9 g/dL (3.5-5.0); Alkaline Phosphatase 137 U/L (39-117); Anion Gap 16 (12-20); Aspartate Amino Transferase 35 U/L (5-37); Bilirubin Total 0.7 mg/dL (0.0-1.0); Blood Urea Nitrogen 22 mg/dL (9-16); Calcium 9.2 mg/dL (8.4-10.2); Carbon Dioxide 24 mmol/L (22-29); Chloride 101 mmol/L (96-108); Creatinine Clr Calc Pharmacy 59.4; Estimated Glomerular Filt Rate 56; Glucose Random 116 mg/dL (60-115); Potassium 4.4 mmol/L (3.3-5.1); Sodium 137 mmol/L (135-145); Total Protein 7.2 g/dL (6.5-8.0)
[2022-06-24 10:41] LABS: Troponin-I High Sensitivity 7.2 ng/L (<3.5-35.0)
[2022-06-24 10:44] LABS: Influenza A PCR POSITIVE (Negative); Influenza B PCR NEGATIVE (Negative); Resp Syncy Virus RNA Qual PCR NEGATIVE (Negative); SARS COV2 PCR INHOUSE NEGATIVE (Negative)
[2022-06-24] MEDS: iohexoL 350 MG/ML 100 ML INFUS..BTL IV (11:43)
[2022-06-24 11:47] VITALS: BP 103/52; PULSE 81; RESP 18; TEMP 36.8; O2SAT 94
== END 2022-06-24 13:27 | disposition home or self-care (01) ==
PROVIDERS: Physician Assistant Medical; Emergency Provider Emergency Medicine Emergency Medical Services
DX: J11.1 Influenza due to unidentified influenza virus with other respiratory manifestations (principal); Z20.822 Contact with and (suspected) exposure to COVID-19; J45.909 Unspecified asthma, uncomplicated; Z87.891 Personal history of nicotine dependence
CPT/HCPCS: 0241U; 36415; 71046; 71275; 80053; 84484; 85025; 85379; 96372; 99284; J1885; Q9967

== ENCOUNTER 2022-08-04 10:18 | Emergency (ER) | payer MEDICARE, SELFPAY ==
[2022-08-04 10:19] VITALS: BP 116/87; PULSE 75; RESP 18; TEMP 36.1; O2SAT 97; BMI 25.0
--- NOTE | 2022-08-04 10:24 | ECG_ITS ---
Test Reason : chest pain Blood Pressure : / mmHG Vent. Rate : 070 BPM Atrial Rate : 070 BPM P-R Int : 144 ms QRS Dur : 084 ms QT Int : 404 ms P-R-T Axes : 058 -24 -06 degrees QTc Int : 436 ms Normal sinus rhythm Nonspecific T wave abnormality Abnormal ECG When compared with ECG of 17-JUN-2022 10:23, No significant changes seen Referred By: Generic ED Physician Electronically Signed By:JOSE ANGEL GARAY
[2022-08-04 10:42] LABS: MANUAL DIFF FLAG NO
[2022-08-04 10:43] LABS: Basophils Absolute Auto 0.1 X10*3/uL (0.0-0.2); Basophils Percent Auto 0.5 % (0-2); Eosinophils Absolute Auto 0.2 X10*3/uL (0.0-0.4); Eosinophils Percent Auto 2.6 % (0-4); Hematocrit 43.4 % (42.0-52.0); Hemoglobin 14.7 g/dl (14.0-18.0); Imm Gran Abs Auto 0.03 X10*3/uL (0.00-0.03); Imm Gran Pct Auto 0.3 % (0.0-0.4); Lymphocytes Absolute Auto 1.4 X10*3/uL (1.2-4.9); Lymphocytes Percent Auto 15.5 % (20-40); Mean Corpuscular HGB Conc 33.9 g/dl (31.0-36.0); Mean Corpuscular Hemoglobin 28.7 pg (27.0-33.0); Mean Corpuscular Volume 84.6 fL (80.0-98.0); Mean Platelet Volume 9.7 fL (9.4-12.4); Monocytes Absolute Auto 0.8 X10*3/uL (0.1-1.2); Monocytes Percent Auto 8.4 % (2-11); Neutrophils Absolute Auto 6.7 x10*3/uL (2.0-8.3); Neutrophils Percent Auto 72.7 % (45-73); Platelet Count 456 X10*3/uL (160-400); Red Blood Count 5.13 X10*6/uL (4.60-5.80); Red Cell Distribution Width 13.3 % (11.0-16.0); White Blood Count 9.2 X10*3/uL (4.8-10.8)
[2022-08-04 11:04] LABS: Anion Gap 13 (12-20); Blood Urea Nitrogen 16 mg/dL (9-16); Calcium 9.6 mg/dL (8.4-10.2); Carbon Dioxide 23 mmol/L (22-29); Chloride 108 mmol/L (96-108); Creatinine Clr Calc Pharmacy 79.4; Estimated Glomerular Filt Rate > 60; Glucose Random 85 mg/dL (60-115); Potassium 4.2 mmol/L (3.3-5.1); Sodium 140 mmol/L (135-145)
[2022-08-04 11:17] LABS: Troponin-I High Sensitivity 101.4 ng/L (<3.5-35.0)
[2022-08-04] MEDS: Aspirin 81 MG TAB.CHEW 324 MG PO (12:35)
[2022-08-04 12:38] VITALS: BP 128/88; PULSE 64; RESP 18; O2SAT 95
--- NOTE | 2022-08-04 12:44 | PC.NURSE ---
pt is alert and oriented, skin appropriate for ethnicity, pt reports that the last weeks has been having intermittent chest pain with palpitations and feeling sob, currently pt is having stabbing pain in his midsternal/left sided chest, ls wheezing throught out, vs stable, ns on the monitor
[2022-08-04] MEDS: Albuterol Sulfate 90 MCG 8 GM INHALER 4 PUFF INHALE (12:59)
[2022-08-04 13:00] VITALS: PULSE 69; RESP 18; O2SAT 95
[2022-08-04 14:35] LABS: Troponin-I High Sensitivity 79.7 ng/L (<3.5-35.0)
--- NOTE | 2022-08-04 14:36 | PC.NURSE ---
report received from ARSALAN Morrison. Pt is resting comfortably on stretcher at this time, requesting crackers. Pt reports his pain has subsided a significant amount
--- NOTE | 2022-08-04 16:05 | ED_ITS ---
HPI - Arrhythmia/Palpitations General Chief Complaint: Arrhythmia/Palpitations Stated Complaint: rapid heart beat chest pain Time Seen by Provider: 08/04/22 11:41 Source: patient Mode of arrival: ambulatory Limitations: no limitations History of Present Illness HPI narrative: 49-year-old male who presents emergency department for evaluation of palpitations on off for approximately 2 weeks. Patient states that he has been getting daily, intermittent, palpitations that will last several hours. He states he will feel his heart beating fast and then slow. States occasionally feels lightheaded dizzy and nauseous with the palpitations. He denied diaphoresis, pain radiating to his neck, jaw, back or arms. Patient states the palpitations can come on at rest and with exercise. He states however they seem to come on more at night when he is trying to relax and fall asleep. He denied fever, chills, nausea, vomiting, diarrhea, myalgias, arthralgias, cough Related Data Home Medications Medication Instructions Recorded Confirmed albuterol sulfate 1.25 mg/3 mL 2.5 mg inhalation BID PRN Wheezing 07/23/21 07/23/21 solution for nebulization albuterol sulfate 90 mcg/actuation 2 puff inhalation Q4H PRN Wheezing 07/23/21 07/23/21 aerosol inhaler budesonide-formoterol HFA 160 1 puff inhalation BID 07/23/21 07/23/21 mcg-4.5 mcg/actuation aerosol inhaler (Symbicort) omeprazole 40 mg capsule,delayed 1 cap PO DAILY 07/23/21 07/23/21 release rosuvastatin 10 mg tablet 1 tab PO BEDTIME 07/23/21 Previous Rx's Medication Instructions Recorded ibuprofen 600 mg tablet 600 mg PO TID PRN pain #20 tabs 06/07/21 azithromycin 500 mg tablet 500 mg PO Q24H #5 tabs 07/25/21 cefuroxime axetil 500 mg tablet 500 mg PO BID #10 tabs 07/25/21 prednisone 10 mg tablet 40 mg PO DAILY #16 tabs 07/25/21 albuterol sulfate 90 mcg/actuation 2 puff inhalation Q4-6H PRN 06/17/22 aerosol inhaler shortness of breath or wheezing #6.7 grams prednisone 20 mg tablet 40 mg PO DAILY 4 days #8 tabs 11/18/22 metoprolol succinate 25 mg 12.5 mg PO DAILY #30 tabs 08/04/22 tablet,extended release 24 hr (Toprol XL) Allergies Allergy/AdvReac Type Severity Reaction Status Date / Time seafood Allergy Mild Rash Verified 08/04/22 10:23 Review of Systems Review of Systems: Yes all other systems are reviewed and are negative [facility] Past Medical History [facility] Narrative: Social history: He denies tobacco, alcohol and drug use. Medical History Asthma GERD (gastroesophageal reflux disease) HLD (hyperlipidemia) Surgical History History of appendectomy Family History Family History Brother Diabetes Social History Social History Household Members: Spouse [facility] Patient Tobacco Use Status: Former Tobacco user Smoked in Last 30 Days: No Use of substances other than those prescribed or required for medical reasons: No Advance Directives: No Advance Directives Information Provided: Yes service: No Current occupational status: disabled Current occupation: rt hand Physical Exam Vital Signs: Vital Signs: Last Vital Signs Temp 97.0 F 08/04/22 10:19 Pulse 69 08/04/22 13:00 Resp 18 08/04/22 13:00 BP 128/88 08/04/22 12:38 Pulse Ox 95 08/04/22 12:38 O2 Del Method 08/04/22 12:38 BMI result Body Mass Index 25.0 Const: General: cooperative and no acute distress Orientation/consciousness: oriented to person and oriented to place Limitations: no limitations HEENT: Head: Yes normal to inspection, Yes normocephalic and Yes atraumatic Ears: external ears normal General nose exam: Normal external nose present Face and sinus: Yes normal facial exam Mouth: Normal oral and palatal mucosa present Throat: Yes posterior oropharynx normal Eyes: General: appearance normal, both eyes and all related structures Pupils: Equal, round and reactive pupils present Neck: Neck: Yes normal visual inspection, Yes no lymphadenopathy, Yes trachea midline and Yes supple Chest: Chest palpation & inspection: normal inspection of the chest and normal palpation of entire chest wall Resp: Effort & Inspection: normal respiratory effort and able to speak in complete sentences Auscultation: clear to auscultation bilaterally Cardio: Rate: regular rate Rhythm: regular rhythm Heart sounds: S1 normal heart sound present, S2 normal heart sound present and no murmurs GI: Inspection: Yes normal to inspection Palpation (GI): Soft to palpation, nontender and no guarding Auscultation: normal bowel sounds : General: Yes no CVA tenderness Back/Spine/Pelvis: Back: no CVA tenderness Skin: General skin exam: no rashes or lesions noted Neuro: General: oriented to person and oriented to place Cranial nerves: Yes CN's II-XII intact bilaterally and Yes Equal, round and reactive pupils present Cognition (Neuro): normal cognition Motor exam (neuro): 5/5 motor strength present throughout Extrem: General: Yes normal to inspection Psych: Appearance: grossly normal Speech and movement: Normal speech and movement present Affect: normal affect Attitude: cooperative Thought process: Normal thought process present Thought content: Normal thought content present Medications Administered Discontinued Medications Generic Name Dose Route Start Last Admin Trade Name Freq PRN Reason Stop Dose Admin Albuterol Sulfate 4 puff 08/04/22 12:44 08/04/22 12:59 Albuterol Sulfate 90 Mcg 8 Gm Inhaler INHALE 08/04/22 12:45 4 puff ONCE ONE Administration Aspirin 324 mg 08/04/22 11:58 08/04/22 12:35 Aspirin 81 Mg Tab.Chew PO 08/04/22 11:59 324 mg ONCE ONE Administration Medical Decision Making Medical Decision Making [facility] Narrative: 57-year-old male who presents emergency department for evaluation of intermittent palpitations for the past 2 weeks. These palpitations are not related to exertion and seems to be worse when he is trying to relax and fall asleep specially at night. The patient's physical examination was unremarkable. I ordered a CBC, BMP, troponin, EKG. 1650: My independent interpretation of the patient''s laboratory evaluation revealed a normal CBC and normal BMP. The patient's 1st troponin was 101. The patient's repeat troponin 3 hours later was 79.7 suggesting that did not have myocardial injury. The patient's 12 EKG was unremarkable. At this time, I believe that the patient's palpitations are most likely caused by PACs or PVCs and I did discuss this with him. The patient was monitored here in the emergency department during his several our course and there were no significant arrhythmias detected by our ED diagnostic technologist. The patient is concerned that his symptoms of when to persist therefore I started him on metoprolol succinate 12.5 mg once a day to see if this improves his symptoms. He is advised to follow-up with his PCP for further outpatient workup of his palpitations. Differential Diagnosis Differential includes was not limited to palpitations, PACs, PVCs, anxiety, STEMI, non-STEMI, electrolyte abnormalities, anemia Lab Data MDM Lab Attestation statement: I reviewed the patient's lab results. Result Diagrams: 08/04/22 10:26 08/04/22 10:26 Labs: Lab Results 08/04/22 08/04/22 08/04/22 Range/Units 10:26 10: 10:26 WBC 9.2 (4.8-10.8) X10*3/uL RBC 5.13 (4.60-5.80) X10*6/uL Hgb 14.7 (14.0-18.0) g/dl Hct 43.4 (42.0-52.0) % MCV 84.6 (80.0-98.0) fL MCH 28.7 (27.0-33.0) pg MCHC 33.9 (31.0-36.0) g/dl RDW 13.3 (11.0-16.0) % Plt Count 456 H (160-400) X10*3/uL MPV 9.7 (9.4-12.4) fL Immature Gran % (Auto) 0.3 (0.0-0.4) % Neut % (Auto) 72.7 (45-73) % Lymph % (Auto) 15.5 L (20-40) % [place] % (Auto) 8.4 (2-11) % Eos % (Auto) 2.6 (0-4) % Baso % (Auto) 0.5 (0-2) % Lymph # (Auto) 1.4 (1.2-4.9) X10*3/uL [place] # (Auto) 0.8 (0.1-1.2) X10*3/uL Eos # (Auto) 0.2 (0.0-0.4) X10*3/uL Baso # (Auto) 0.1 (0.0-0.2) X10*3/uL Abs Immat Gran (auto) 0.03 (0.00-0.03) X10*3/uL Absolute Neuts (auto) 6.7 (2.0-8.3) x10*3/uL Absolute Nucleated RBC 0.000 (0.0-0.012) X10*3/uL Nucleated RBC % (auto) 0.0 (0.0-0.2) /100WBC Sodium 140 (135-145) mmol/L Potassium 4.2 (3.3-5.1) mmol/L Chloride 108 (96-108) mmol/L Carbon Dioxide 23 (22-29) mmol/L Anion Gap 13 (12-20) BUN 16 (9-16) mg/dL Creatinine 0.98 (0.5-1.4) mg/dL Estim Creat Clear Calc 79.4 Estimated GFR > 60 Random Glucose 85 (60-115) mg/dL Calcium 9.6 (8.4-10.2) mg/dL Troponin I High Sens 101.4 H* D (<3.5-35.0) ng/L 08/04/22 Range/Units 14:01 WBC (4.8-10.8) X10*3/uL RBC (4.60-5.80) X10*6/uL Hgb (14.0-18.0) g/dl Hct (42.0-52.0) % MCV (80.0-98.0) fL MCH (27.0-33.0) pg MCHC (31.0-36.0) g/dl RDW (11.0-16.0) % Plt Count (160-400) X10*3/uL MPV (9.4-12.4) fL Immature Gran % (Auto) (0.0-0.4) % Neut % (Auto) (45-73) % Lymph % (Auto) (20-40) % [place] % (Auto) (2-11) % Eos % (Auto) (0-4) % Baso % (Auto) (0-2) % Lymph # (Auto) (1.2-4.9) X10*3/uL [place] # (Auto) (0.1-1.2) X10*3/uL Eos # (Auto) (0.0-0.4) X10*3/uL Baso # (Auto) (0.0-0.2) X10*3/uL Abs Immat Gran (auto) (0.00-0.03) X10*3/uL Absolute Neuts (auto) (2.0-8.3) x10*3/uL Absolute Nucleated RBC (0.0-0.012) X10*3/uL Nucleated RBC % (auto) (0.0-0.2) /100WBC Sodium (135-145) mmol/L Potassium (3.3-5.1) mmol/L Chloride (96-108) mmol/L Carbon Dioxide (22-29) mmol/L Anion Gap (12-20) BUN (9-16) mg/dL Creatinine (0.5-1.4) mg/dL Estim Creat Clear Calc Estimated GFR Random Glucose (60-115) mg/dL Calcium (8.4-10.2) mg/dL Troponin I High Sens 79.7 H (<3.5-35.0) ng/L Independent Interpretation I performed an independent interpretation of an: EKG Interpretation: My independent interpretation of the patient's 12 EKG done at 10:24 is as follows: Normal sinus rhythm rate of 70, normal ID interval, QRS duration QTC interval, inverted T-wave in lead 3, no ST segment elevation, no ST segment depression, no PACs, no PVCs, this is a normal EKG. Discharge Plan Discharge Clinical Impression: Palpitations Patient Disposition: Home, Self-Care Instructions: Heart Palpitations (DC) Additional Instructions: Your EKG was unremarkable. While your for being monitored here in the emergency department we did not see any significant arrhythmia is which is reassuring. Your initial troponin was high at 101 (normal is less than 30 and man) but your repeat troponin was 79 which is good and needs that you have not had a heart attack. I am starting you on a beta-nisha, metoprolol succinate 12.5 mg once a day. This medication slows down your heart rate and helps reduce the number of palpitations that you are feeling. I want you to follow-up with your doctor for further evaluation of your palpitations and for possible further outpatient testing. Follow-up with your doctor in 2 days. Please return to the emergency department if your symptoms get worse or if you develop any symptoms that are concerning to you. Prescriptions: New metoprolol succinate [Toprol XL] 25 mg tablet extended release 24 hr 12.5 mg PO DAILY Qty: 30 0RF No Action ibuprofen 600 mg tablet 600 mg PO TID PRN (Reason: pain) Qty: 20 0RF omeprazole 40 mg capsule,delayed release(DR/EC) 1 cap PO DAILY albuterol sulfate 90 mcg/actuation HFA aerosol inhaler 2 puff inhalation Q4H PRN (Reason: Wheezing) rosuvastatin 10 mg tablet 1 tab PO BEDTIME budesonide-formoterol [Symbicort] 160-4.5 mcg/actuation HFA aerosol inhaler 1 puff inhalation BID albuterol sulfate 1.25 mg/3 mL Solution For Nebulization 2.5 mg INHALATION BID PRN (Reason: Wheezing) cefuroxime axetil 500 mg tablet 500 mg PO BID Qty: 10 0RF prednisone 10 mg tablet 40 mg PO DAILY Qty: 16 0RF azithromycin 500 mg Tablet 500 mg PO Q24H Qty: 5 0RF albuterol sulfate 90 mcg/actuation HFA aerosol inhaler 2 puff inhalation Q4-6H PRN (Reason: shortness of breath or wheezing) Qty: 6.7 0RF prednisone 20 mg tablet 40 mg PO DAILY 4 Days Qty: 8 0RF Interventions: ED Discharge Assessment Last Done: 08/04/22 16:32 Discharge Date/Time: 08/04/22 16:34
== END 2022-08-04 16:34 | disposition home or self-care (01) ==
PROVIDERS: Emergency Provider Emergency Medicine Emergency Medical Services
DX: R00.2 Palpitations (principal); Z79.899 Other long term (current) drug therapy; Z87.891 Personal history of nicotine dependence
CPT/HCPCS: 36415; 80048; 84484; 85025; 93005; 94640; 99284; 99285

== ENCOUNTER 2022-09-23 07:42 | Outpatient (REF) | payer MEDICARE, SELFPAY ==
[2022-09-23 08:03] LABS: MANUAL DIFF FLAG NO
[2022-09-23 08:34] LABS: Basophils Absolute Auto 0.1 X10*3/uL (0.0-0.2); Basophils Percent Auto 0.5 % (0-2); Eosinophils Absolute Auto 0.4 X10*3/uL (0.0-0.4); Eosinophils Percent Auto 4.7 % (0-4); Hematocrit 42.6 % (42.0-52.0); Hemoglobin 13.8 g/dl (14.0-18.0); Imm Gran Abs Auto 0.03 X10*3/uL (0.00-0.03); Imm Gran Pct Auto 0.3 % (0.0-0.4); Lymphocytes Percent Auto 21.5 % (20-40); Mean Corpuscular HGB Conc 32.4 g/dl (31.0-36.0); Mean Corpuscular Hemoglobin 28.2 pg (27.0-33.0); Mean Corpuscular Volume 86.9 fL (80.0-98.0); Mean Platelet Volume 10.1 fL (9.4-12.4); Monocytes Absolute Auto 0.6 X10*3/uL (0.1-1.2); Monocytes Percent Auto 6.9 % (2-11); Neutrophils Absolute Auto 6.2 x10*3/uL (2.0-8.3); Neutrophils Percent Auto 66.1 % (45-73); Platelet Count 525 X10*3/uL (160-400); Red Cell Distribution Width 14.2 % (11.0-16.0); White Blood Count 9.3 X10*3/uL (4.8-10.8)
[2022-09-23 09:36] LABS: Alanine Aminotransferase 17 U/L (0-40); Alkaline Phosphatase 129 U/L (39-117); Anion Gap 13 (12-20); Aspartate Amino Transferase 25 U/L (5-37); Bilirubin Total 0.9 mg/dL (0.0-1.0); Blood Urea Nitrogen 22 mg/dL (9-16); Calcium 9.4 mg/dL (8.4-10.2); Carbon Dioxide 28 mmol/L (22-29); Chloride 104 mmol/L (96-108); Cholesterol 209 mg/dL; Estimated Glomerular Filt Rate > 60; Glucose Random 97 mg/dL (60-115); HDL Cholesterol 35 mg/dL; LDL Cholesterol Calculated 150 mg/dl; Prostate Specific Antigen 12.98 ng/mL (<0.05-4.0); Sodium 140 mmol/L (135-145); Thyroid Stimulating Hormone 4.27 uIU/mL (0.32-4.0); Total Protein 6.7 g/dL (6.5-8.0); Triglycerides 122 mg/dL
== END 2022-09-23 07:43 | disposition home or self-care (01) ==
LOC: HO.LAB 07:42
PROVIDERS: PCP Internal Medicine; Visit Provider Internal Medicine
DX: Z00.00 Encounter for general adult medical examination without abnormal findings (principal); E78.00 Pure hypercholesterolemia, unspecified; I10 Essential (primary) hypertension; R63.4 Abnormal weight loss; R97.20 Elevated prostate specific antigen [PSA]; Z12.5 Encounter for screening for malignant neoplasm of prostate
CPT/HCPCS: 36415; 80053; 80061; 84153; 84443; 85025

== ENCOUNTER 2022-10-07 12:21 | Emergency (ER) | payer MEDICARE, SELFPAY ==
--- NOTE | ~2022-10-07 | XR_ITS ---
EXAMINATION: XR CHEST CLINICAL INFORMATION: Cough. COMPARISON: 06/24/2022 chest radiographs. TECHNIQUE: 2 views of the chest were obtained. FINDINGS: No significant abnormality is noted involving the heart, lungs, mediastinum, bony thorax or soft tissues. XR/XR chest 2V IMPRESSION: No acute cardiopulmonary process.
[2022-10-07 12:34] VITALS: BP 136/79; PULSE 64; RESP 18; TEMP 36.6; O2SAT 98; BMI 25.8
--- NOTE | 2022-10-07 12:34 | ED_ITS ---
HPI - Arrhythmia/Palpitations General Chief Complaint: Arrhythmia/Palpitations <SUE Dixon - Last Filed: 10/07/22 12:39> Stated Complaint: rapid heart beat <SUE Dixon - Last Filed: 10/07/22 12:39> Time Seen by Provider: 10/07/22 18:22 <SUE Dixon - Last Filed: 10/07/22 12:39> History of Present Illness HPI narrative: Patient history of anxiety asthma been having palpitation episodes since 08/22 was seen here on 08/04 with workup negative comes here that for last few days having the same episode unable to sleep because of palpitation episode so feels that heart beats fast for few minutes no dizziness no loss of consciousness feels no chest pain or shortness of breath patient very anxious on 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 no palpitation noticed <Good Santos MD - Last Filed: 10/08/22 00:50> Related Data Home Medications: Home Medications Medication Instructions Recorded Confirmed albuterol sulfate 1.25 mg/3 mL 2.5 mg inhalation BID PRN Wheezing 07/23/21 07/23/21 solution for nebulization albuterol sulfate 90 mcg/actuation 2 puff inhalation Q4H PRN Wheezing 07/23/21 07/23/21 aerosol inhaler budesonide-formoterol HFA 160 1 puff inhalation BID 07/23/21 07/23/21 mcg-4.5 mcg/actuation aerosol inhaler (Symbicort) omeprazole 40 mg capsule,delayed 1 cap PO DAILY 07/23/21 07/23/21 release rosuvastatin 10 mg tablet 1 tab PO BEDTIME 07/23/21 Previous Rx's Medication Instructions Recorded ibuprofen 600 mg tablet 600 mg PO TID PRN pain #20 tabs 06/07/21 azithromycin 500 mg tablet 500 mg PO Q24H #5 tabs 07/25/21 cefuroxime axetil 500 mg tablet 500 mg PO BID #10 tabs 07/25/21 prednisone 10 mg tablet 40 mg PO DAILY #16 tabs 07/25/21 albuterol sulfate 90 mcg/actuation 2 puff inhalation Q4-6H PRN 06/17/22 aerosol inhaler shortness of breath or wheezing #6.7 grams prednisone 20 mg tablet 40 mg PO DAILY 4 days #8 tabs 06/17/22 metoprolol succinate 25 mg 12.5 mg PO DAILY #30 tabs 08/04/22 tablet,extended release 24 hr (Toprol XL) lorazepam 0.5 mg tablet (Ativan) 0.5 mg PO BEDTIME PRN anxiety #10 10/07/22 tabs <SUE Dixon - Last Filed: 10/07/22 12:39> Allergies/Adverse Reactions: Allergies Allergy/AdvReac Type Severity Reaction Status Date / Time seafood Allergy Mild Rash Verified 08/04/22 10:23 <SUE Dixon - Last Filed: 10/07/22 12:39> Review of Systems Review of Systems: Constitutional : No Weight loss, No Fever, No Chills ENT/Mouth : No sore throat, No Rhinorrhea Eyes: No Eye Pain, No Swelling Cardiovascular : No Chest Pain, no palpitations Respiratory : No Cough, No Sputum, no shortness of breath Gastrointestinal : no Nausea, No Vomiting, No Diarrhea, No abdominal Pain, no black stools Genitourinary : No Dysuria, No Urinary Frequency Musculoskeletal : No joint pain, No Myalgias, No Joint Swelling Skin : No Skin Lesions, No rash Neuro : No Weakness, No Numbness, No Dizziness, No Headache Psych :+ Anxiety/Panic, No Depression Heme/Lymph: No Bruising, No Lymphadenopathy Endocrine : No Polyuria, No Polydipsia All other systems reviewed and are negative <Good Santos MD - Last Filed: 10/08/22 00:50> Yes all other systems are reviewed and are negative <Good Santos MD - Last Filed: 10/08/22 00:50> [facility] Past Medical History Medical History: Medical History Asthma GERD (gastroesophageal reflux disease) HLD (hyperlipidemia) <SUE Dixon - Last Filed: 10/07/22 12:39> Surgical History: Surgical History History of appendectomy <SUE Dixon - Last Filed: 10/07/22 12:39> Family History Family History: Family History Brother Diabetes <SUE Dixon - Last Filed: 10/07/22 12:39> Social History Social History: Social History Household Members: [facility] Patient Tobacco Use Status: Former Tobacco user Smoked in Last 30 Days: No Use of substances other than those prescribed or required for medical reasons: No Advance Directives: No Advance Directives Information Provided: No service: No Current occupational status: disabled Current occupation: rt hand <SUE Dixon - Last Filed: 10/07/22 12:39> Physical Exam Vital Signs: Vital Signs: Last Vital Signs Temp 98.9 F 10/07/22 19:35 Pulse 59 10/07/22 19:35 Resp 13 10/07/22 19:35 BP 111/72 10/07/22 19:35 Pulse Ox 96 10/07/22 19:35 O2 Del Method 10/07/22 19:35 BMI result Body Mass Index 25.8 <SUE Dixon - Last Filed: 10/07/22 12:39> Vital Signs: Last Vital Signs Temp 98.9 F 10/07/22 19:35 Pulse 59 10/07/22 19:35 Resp 13 10/07/22 19:35 BP 111/72 10/07/22 19:35 Pulse Ox 96 10/07/22 19:35 O2 Del Method 10/07/22 19:35 BMI result Body Mass Index 25.8 <Good Santos MD - Last Filed: 10/08/22 00:50> Appearance: Alert. Oriented X3. No acute distress. Anxious Eyes: PERRLA, No Nystagmus ENT: Pharynx normal. Oral Mucosa moist Neck: Normal inspection. Neck supple. CVS: Normal heart rate and rhythm. Pulses normal. Respiratory: No respiratory distress. Equal air entry bilateral, no wheezing/rales/rhonchi Abdomen: Soft and nontender. Bowel sounds are present, no mass palpable, no CVA tenderness Skin: Skin warm and dry. Normal skin color. Normal skin turgor. Extremities: No lower extremity edema. No calf tenderness Neuro: Oriented X 3. No motor deficit. No sensory deficit.No cerebellar signs , cranial nerves II-XII intact <Good Santos MD - Last Filed: 10/08/22 00:50> Course Course Course Narrative: RME - 57 yo M presenting to the ER with complaints of ongoing palpitations x 2 weeks. Pt was seen for these symptoms on 08/04/2022 and was discharged on metoprolol but PCP changed this to a different medication. States last few days, palpitations have been worse, had CP this morning. plan- labs, xray, ekgordered. <SUE Dixon - Last Filed: 10/07/22 12:39> Medical Decision Making Medical Decision Making [facility] Narrative: Patient with anxiety and palpitation episode patient been monitored in the ER no cardiac arrhythmias noticed. Patient advised to follow with PCP for further management patient does have history of anxiety likely the cause <Good Santos MD - Last Filed: 10/08/22 00:50> Lab Data [facility] Lab Attestation statement: I reviewed the patient's lab results. <Good Santos MD - Last Filed: 10/08/22 00:50> Result Diagrams: 10/07/22 12:49 10/07/22 12:49 <SUE Dixon - Last Filed: 10/07/22 12:39> Labs: Lab Results 10/07/22 10/07/22 10/07/22 Range/Units 12:49 12:49 12:49 WBC 6.4 (4.8-10.8) X10*3/uL RBC 4.74 (4.60-5.80) X10*6/uL Hgb 13.8 L (14.0-18.0) g/dl Hct 41.2 L (42.0-52.0) % MCV 86.9 (80.0-98.0) fL MCH 29.1 (27.0-33.0) pg MCHC 33.5 (31.0-36.0) g/dl RDW 14.8 (11.0-16.0) % Plt Count 381 D (160-400) X10*3/uL MPV 10.1 (9.4-12.4) fL Immature Gran % (Auto) 0.3 (0.0-0.4) % Neut % (Auto) 59.8 (45-73) % Lymph % (Auto) 24.1 (20-40) % Baldwin % (Auto) 6.5 (2-11) % Eos % (Auto) 8.5 H (0-4) % Baso % (Auto) 0.8 (0-2) % Lymph # (Auto) 1.5 (1.2-4.9) X10*3/uL [place] # (Auto) 0.4 (0.1-1.2) X10*3/uL Eos # (Auto) 0.5 H (0.0-0.4) X10*3/uL Baso # (Auto) 0.1 (0.0-0.2) X10*3/uL Abs Immat Gran (auto) 0.02 (0.00-0.03) X10*3/uL Absolute Neuts (auto) 3.8 (2.0-8.3) x10*3/uL Absolute Nucleated RBC 0.000 (0.0-0.012) X10*3/uL Nucleated RBC % (auto) 0.0 (0.0-0.2) /100WBC Sodium 142 (135-145) mmol/L Potassium 4.4 (3.3-5.1) mmol/L Chloride 109 H (96-108) mmol/L Carbon Dioxide 25 (22-29) mmol/L Anion Gap 12 (12-20) BUN 19 H (9-16) mg/dL Creatinine 1.10 (0.5-1.4) mg/dL Estim Creat Clear Calc 70.8 Estimated GFR > 60 Random Glucose 98 (60-115) mg/dL Calcium 9.6 (8.4-10.2) mg/dL Magnesium 2.0 (1.6-2.6) mg/dL Total Bilirubin 1.6 H (0.0-1.0) mg/dL Direct Bilirubin 0.3 (0.0-0.5) mg/dL AST 28 (5-37) U/L ALT 18 (0-40) U/L Alkaline Phosphatase 139 H (39-117) U/L Troponin I High Sens 5.0 D (<3.5-35.0) ng/L Total Protein 7.2 (6.5-8.0) g/dL Albumin 4.2 (3.5-5.0) g/dL Urine Color Urine Appearance Urine pH (5.0-9.0) Ur Specific [place] (1.005-1.025) Urine Protein (Neg-Trace) mg/dL Urine Glucose (UA) (Negative) mg/dL Urine Ketones (Negative) mg/dL Urine Blood (Negative) Urine Nitrite (Negative) Ur Leukocyte Esterase (Negative) 10/07/22 Range/Units 16:41 WBC (4.8-10.8) X10*3/uL RBC (4.60-5.80) X10*6/uL Hgb (14.0-18.0) g/dl Hct (42.0-52.0) % MCV (80.0-98.0) fL MCH (27.0-33.0) pg MCHC (31.0-36.0) g/dl RDW (11.0-16.0) % Plt Count (160-400) X10*3/uL MPV (9.4-12.4) fL Immature Gran % (Auto) (0.0-0.4) % Neut % (Auto) (45-73) % Lymph % (Auto) (20-40) % Baldwin % (Auto) (2-11) % Eos % (Auto) (0-4) % Baso % (Auto) (0-2) % Lymph # (Auto) (1.2-4.9) X10*3/uL [place] # (Auto) (0.1-1.2) X10*3/uL Eos # (Auto) (0.0-0.4) X10*3/uL Baso # (Auto) (0.0-0.2) X10*3/uL Abs Immat Gran (auto) (0.00-0.03) X10*3/uL Absolute Neuts (auto) (2.0-8.3) x10*3/uL Absolute Nucleated RBC (0.0-0.012) X10*3/uL Nucleated RBC % (auto) (0.0-0.2) /100WBC Sodium (135-145) mmol/L Potassium (3.3-5.1) mmol/L Chloride (96-108) mmol/L Carbon Dioxide (22-29) mmol/L Anion Gap (12-20) BUN (9-16) mg/dL Creatinine (0.5-1.4) mg/dL Estim Creat Clear Calc Estimated GFR Random Glucose (60-115) mg/dL Calcium (8.4-10.2) mg/dL Magnesium (1.6-2.6) mg/dL Total Bilirubin (0.0-1.0) mg/dL Direct Bilirubin (0.0-0.5) mg/dL AST (5-37) U/L ALT (0-40) U/L Alkaline Phosphatase (39-117) U/L Troponin I High Sens (<3.5-35.0) ng/L Total Protein (6.5-8.0) g/dL Albumin (3.5-5.0) g/dL Urine Color Dark Yellow Urine Appearance Clear Urine pH 5.0 (5.0-9.0) Ur Specific [place] >= 1.030 H (1.005-1.025) Urine Protein Trace (Neg-Trace) mg/dL Urine Glucose (UA) Negative (Negative) mg/dL Urine Ketones Trace (Negative) mg/dL Urine Blood Negative (Negative) Urine Nitrite Negative (Negative) Ur Leukocyte Esterase Negative (Negative) <SUE Dixon - Last Filed: 10/07/22 12:39> Lab Results 10/07/22 10/07/22 10/07/22 Range/Units 12:49 12:49 12:49 WBC 6.4 (4.8-10.8) X10*3/uL RBC 4.74 (4.60-5.80) X10*6/uL Hgb 13.8 L (14.0-18.0) g/dl Hct 41.2 L (42.0-52.0) % MCV 86.9 (80.0-98.0) fL MCH 29.1 (27.0-33.0) pg MCHC 33.5 (31.0-36.0) g/dl RDW 14.8 (11.0-16.0) % Plt Count 381 D (160-400) X10*3/uL MPV 10.1 (9.4-12.4) fL Immature Gran % (Auto) 0.3 (0.0-0.4) % Neut % (Auto) 59.8 (45-73) % Lymph % (Auto) 24.1 (20-40) % Baldwin % (Auto) 6.5 (2-11) % Eos % (Auto) 8.5 H (0-4) % Baso % (Auto) 0.8 (0-2) % Lymph # (Auto) 1.5 (1.2-4.9) X10*3/uL [place] # (Auto) 0.4 (0.1-1.2) X10*3/uL Eos # (Auto) 0.5 H (0.0-0.4) X10*3/uL Baso # (Auto) 0.1 (0.0-0.2) X10*3/uL Abs Immat Gran (auto) 0.02 (0.00-0.03) X10*3/uL Absolute Neuts (auto) 3.8 (2.0-8.3) x10*3/uL Absolute Nucleated RBC 0.000 (0.0-0.012) X10*3/uL Nucleated RBC % (auto) 0.0 (0.0-0.2) /100WBC Sodium 142 (135-145) mmol/L Potassium 4.4 (3.3-5.1) mmol/L Chloride 109 H (96-108) mmol/L Carbon Dioxide 25 (22-29) mmol/L Anion Gap 12 (12-20) BUN 19 H (9-16) mg/dL Creatinine 1.10 (0.5-1.4) mg/dL Estim Creat Clear Calc 70.8 Estimated GFR > 60 Random Glucose 98 (60-115) mg/dL Calcium 9.6 (8.4-10.2) mg/dL Magnesium 2.0 (1.6-2.6) mg/dL Total Bilirubin 1.6 H (0.0-1.0) mg/dL Direct Bilirubin 0.3 (0.0-0.5) mg/dL AST 28 (5-37) U/L ALT 18 (0-40) U/L Alkaline Phosphatase 139 H (39-117) U/L Troponin I High Sens 5.0 D (<3.5-35.0) ng/L Total Protein 7.2 (6.5-8.0) g/dL Albumin 4.2 (3.5-5.0) g/dL Urine Color Urine Appearance Urine pH (5.0-9.0) Ur Specific [place] (1.005-1.025) Urine Protein (Neg-Trace) mg/dL Urine Glucose (UA) (Negative) mg/dL Urine Ketones (Negative) mg/dL Urine Blood (Negative) Urine Nitrite (Negative) Ur Leukocyte Esterase (Negative) 10/07/22 Range/Units 16:41 WBC (4.8-10.8) X10*3/uL RBC (4.60-5.80) X10*6/uL Hgb (14.0-18.0) g/dl Hct (42.0-52.0) % MCV (80.0-98.0) fL MCH (27.0-33.0) pg MCHC (31.0-36.0) g/dl RDW (11.0-16.0) % Plt Count (160-400) X10*3/uL MPV (9.4-12.4) fL Immature Gran % (Auto) (0.0-0.4) % Neut % (Auto) (45-73) % Lymph % (Auto) (20-40) % [place] % (Auto) (2-11) % Eos % (Auto) (0-4) % Baso % (Auto) (0-2) % Lymph # (Auto) (1.2-4.9) X10*3/uL [place] # (Auto) (0.1-1.2) X10*3/uL Eos # (Auto) (0.0-0.4) X10*3/uL Baso # (Auto) (0.0-0.2) X10*3/uL Abs Immat Gran (auto) (0.00-0.03) X10*3/uL Absolute Neuts (auto) (2.0-8.3) x10*3/uL Absolute Nucleated RBC (0.0-0.012) X10*3/uL Nucleated RBC % (auto) (0.0-0.2) /100WBC Sodium (135-145) mmol/L Potassium (3.3-5.1) mmol/L Chloride (96-108) mmol/L Carbon Dioxide (22-29) mmol/L Anion Gap (12-20) BUN (9-16) mg/dL Creatinine (0.5-1.4) mg/dL Estim Creat Clear Calc Estimated GFR Random Glucose (60-115) mg/dL Calcium (8.4-10.2) mg/dL Magnesium (1.6-2.6) mg/dL Total Bilirubin (0.0-1.0) mg/dL Direct Bilirubin (0.0-0.5) mg/dL AST (5-37) U/L ALT (0-40) U/L Alkaline Phosphatase (39-117) U/L Troponin I High Sens (<3.5-35.0) ng/L Total Protein (6.5-8.0) g/dL Albumin (3.5-5.0) g/dL Urine Color Dark Yellow Urine Appearance Clear Urine pH 5.0 (5.0-9.0) Ur Specific [place] >= 1.030 H (1.005-1.025) Urine Protein Trace (Neg-Trace) mg/dL Urine Glucose (UA) Negative (Negative) mg/dL Urine Ketones Trace (Negative) mg/dL Urine Blood Negative (Negative) Urine Nitrite Negative (Negative) Ur Leukocyte Esterase Negative (Negative) <Good Santos MD - Last Filed: 10/08/22 00:50> Independent Interpretation I performed an independent interpretation of an: EKG <Good Santos MD - Last Filed: 10/08/22 00:50> Interpretation: Normal sinus rhythm heart rate 64 beats per minute normal interval normal axis no acute ST wave changes no acute ischemia <Good Santos MD - Last Filed: 10/08/22 00:50> Discharge Plan Discharge Clinical Impression: Anxiety, Palpitations <SUE Dixon - Last Filed: 10/07/22 12:39> Patient Disposition: Home, Self-Care <SUE Dixon Last Filed: 10/07/22 12:39> Instructions: Heart Palpitations (ED), Anxiety (ED) <SUE Dixon Last Filed: 10/07/22 12:39> Additional Instructions: Follow with PCP/cardiology of further evaluate including Holter monitoring Medicine for anxiety as prescribed <SUE Dixon Last Filed: 10/07/22 12:39> Prescriptions: New lorazepam [Ativan] 0.5 mg tablet 0.5 mg PO BEDTIME PRN (Reason: anxiety) Qty: 10 0RF No Action ibuprofen 600 mg tablet 600 mg PO TID PRN (Reason: pain) Qty: 20 0RF omeprazole 40 mg capsule,delayed release(DR/EC) 1 cap PO DAILY albuterol sulfate 90 mcg/actuation HFA aerosol inhaler 2 puff inhalation Q4H PRN (Reason: Wheezing) rosuvastatin 10 mg tablet 1 tab PO BEDTIME budesonide-formoterol [Symbicort] 160-4.5 mcg/actuation HFA aerosol inhaler 1 puff inhalation BID albuterol sulfate 1.25 mg/3 mL Solution For Nebulization 2.5 mg INHALATION BID PRN (Reason: Wheezing) cefuroxime axetil 500 mg tablet 500 mg PO BID Qty: 10 0RF prednisone 10 mg tablet 40 mg PO DAILY Qty: 16 0RF azithromycin 500 mg Tablet 500 mg PO Q24H Qty: 5 0RF albuterol sulfate 90 mcg/actuation HFA aerosol inhaler 2 puff inhalation Q4-6H PRN (Reason: shortness of breath or wheezing) Qty: 6.7 0RF prednisone 20 mg tablet 40 mg PO DAILY 4 Days Qty: 8 0RF metoprolol succinate [Toprol XL] 25 mg tablet extended release 24 hr 12.5 mg PO DAILY Qty: 30 0RF <SUE Dixon - Last Filed: 10/07/22 12:39> Referrals: Carl Schmid MD [Physician] - 1 week <SUE Dixon - Last Filed: 10/07/22 12:39> Interventions: ED Discharge Assessment Last Done: 10/07/22 19:39 <SUE Dixon - Last Filed: 10/07/22 12:39> Discharge Date/Time: 10/07/22 19:40 <SUE Dixon - Last Filed: 10/07/22 12:39>
--- NOTE | 2022-10-07 12:36 | ECG_ITS ---
Test Reason : tachycardia Blood Pressure : / mmHG Vent. Rate : 064 BPM Atrial Rate : 064 BPM P-R Int : 136 ms QRS Dur : 080 ms QT Int : 430 ms P-R-T Axes : 051 011 034 degrees QTc Int : 443 ms Normal sinus rhythm Normal ECG When compared with ECG of 04-AUG-2022 10:24, No significant changes seen Referred By: Josselyn Ball Electronically Signed By:JOSE ANGEL GARAY
--- NOTE | 2022-10-07 12:52 | MHC.EDTECH ---
EKG completed and signed by . Labs collected and sent
[2022-10-07 12:53] LABS: MANUAL DIFF FLAG NO
[2022-10-07 12:55] LABS: Basophils Absolute Auto 0.1 X10*3/uL (0.0-0.2); Basophils Percent Auto 0.8 % (0-2); Eosinophils Absolute Auto 0.5 X10*3/uL (0.0-0.4); Eosinophils Percent Auto 8.5 % (0-4); Hematocrit 41.2 % (42.0-52.0); Hemoglobin 13.8 g/dl (14.0-18.0); Imm Gran Abs Auto 0.02 X10*3/uL (0.00-0.03); Imm Gran Pct Auto 0.3 % (0.0-0.4); Lymphocytes Absolute Auto 1.5 X10*3/uL (1.2-4.9); Lymphocytes Percent Auto 24.1 % (20-40); Mean Corpuscular HGB Conc 33.5 g/dl (31.0-36.0); Mean Corpuscular Hemoglobin 29.1 pg (27.0-33.0); Mean Corpuscular Volume 86.9 fL (80.0-98.0); Mean Platelet Volume 10.1 fL (9.4-12.4); Monocytes Absolute Auto 0.4 X10*3/uL (0.1-1.2); Monocytes Percent Auto 6.5 % (2-11); Neutrophils Absolute Auto 3.8 x10*3/uL (2.0-8.3); Neutrophils Percent Auto 59.8 % (45-73); Platelet Count 381 X10*3/uL (160-400); Red Blood Count 4.74 X10*6/uL (4.60-5.80); Red Cell Distribution Width 14.8 % (11.0-16.0); White Blood Count 6.4 X10*3/uL (4.8-10.8)
[2022-10-07 13:14] LABS: Alanine Aminotransferase 18 U/L (0-40); Albumin Level 4.2 g/dL (3.5-5.0); Alkaline Phosphatase 139 U/L (39-117); Anion Gap 12 (12-20); Aspartate Amino Transferase 28 U/L (5-37); Bilirubin Direct 0.3 mg/dL (0.0-0.5); Bilirubin Total 1.6 mg/dL (0.0-1.0); Blood Urea Nitrogen 19 mg/dL (9-16); Calcium 9.6 mg/dL (8.4-10.2); Carbon Dioxide 25 mmol/L (22-29); Chloride 109 mmol/L (96-108); Creatinine Clr Calc Pharmacy 70.8; Estimated Glomerular Filt Rate > 60; Glucose Random 98 mg/dL (60-115); Potassium 4.4 mmol/L (3.3-5.1); Sodium 142 mmol/L (135-145); Total Protein 7.2 g/dL (6.5-8.0)
[2022-10-07 16:42] VITALS: BP 129/76; PULSE 72; RESP 16; TEMP 36.8; O2SAT 98
--- NOTE | 2022-10-07 16:42 | MHC.EDTECH ---
Addendum entered by Gregory Romero 10/07/22 16:43: pt was called back to triage to re check vitals and collect urine sample . Original Note: PT WAS CALLED BACK TO [facility] to re chech vitals and collect urine sample .
[2022-10-07 16:58] LABS: Appearance Urine Clear; Color Urine Dark Yellow; Glucose Urine UA Negative (Negative); Leukocyte Esterase Urine Negative (Negative); Nitrite Urine Negative (Negative); Specific Gravity - Urine >= 1.030 (1.005-1.025); Urine Blood Negative (Negative); Urine Ketones Trace mg/dL (Negative); Urine Protein Trace mg/dL (Neg-Trace)
[2022-10-07 18:36] VITALS: BP 113/68; PULSE 63; RESP 18; O2SAT 95
[2022-10-07 19:35] VITALS: BP 111/72; PULSE 59; RESP 13; TEMP 37.2; O2SAT 96
== END 2022-10-07 19:40 | disposition home or self-care (01) ==
PROVIDERS: Physician Assistant; Emergency Provider Internal Medicine; PCP Internal Medicine
DX: R00.2 Palpitations (principal); F41.9 Anxiety disorder, unspecified; K21.9 Gastro-esophageal reflux disease without esophagitis; E78.5 Hyperlipidemia, unspecified
CPT/HCPCS: 36415; 71046; 80048; 80076; 81003; 83735; 84484; 85025; 93005; 99283; 99284

== ENCOUNTER → 2022-11-02 10:09 | Outpatient (BNVA) | payer MEDICARE, SELFPAY | PROVIDERS: PCP Internal Medicine; Visit Provider Internal Medicine | DX: I25.10 Atherosclerotic heart disease of native coronary artery without angina pectoris (principal); R77.8 Other specified abnormalities of plasma proteins; R00.2 Palpitations; I77.79 Dissection of other specified artery | CPT/HCPCS: 99202 ==

== ENCOUNTER → 2022-11-11 10:48 | Outpatient (REF) | payer MEDICARE, SELFPAY ==
--- NOTE | 2022-11-11 10:51 | HM_ITS ---
* Total monitoring time 28 days. * Average ventricular rate 78/Min. Range 50 to 131/Min. * No atrial fibrillation noted. * Rare supraventricular ectopy. * Rare ventricular ectopy. * No sustained arrhythmias. * No patient symptoms documented. MTDD
--- NOTE | 2022-11-11 10:51 | CA_ITS ---
Transthoracic Echocardiogram Patient (Last, First, Middle): Byron Mcclellan, Gender: Male Date of : 1965 Age: 57 Procedure Date: 11/11/2022 Procedure Type: Transthoracic Echocardiogram Location: OP Height: 172.72 cm Weight: 77.11 kg BSA: 1.91 m2 Heart Rate: 69 bpm BP: 120 / 80 mmHg Customer Success Intern: JOSE MARIA Sauceda MD: Carl Schmid MD Electric Motor Mechanic: Panchito Holcomb MD Symptoms: I25.10 - Atherosclerotic heart disease of [place] coronary artery without... Study Quality: Good ECG Rhythm: Sinus Conclusions: - 1. Normal LV systolic and diastolic function 2. Normal cardiac valvular Doppler 3. Normal RV systolic pressure 4. No gross pericardial effusion Findings Left Ventricle Normal left ventricular size, thickness, and systolic function. The visually estimated ejection fraction is between 55-60%. Spectral Doppler is indicative of a normal filling pattern. Peak GLS is -17.8%, within acceptable limits. Wall Motion Rest Echo Findings The inferoseptal wall, the basal inferior, and mid inferior segments are hypokinetic. All other scored wall segments showed normal motion. Right Ventricle Normal right ventricular cavity size and systolic function. Atria The left atrium is normal in size. There is no evidence of interatrial shunt. The right atrium is normal in size. Aortic Valve Normal aortic valve structure and function. There is no aortic valve stenosis. There is no aortic valve regurgitation. Mitral Valve Normal mitral valve structure and function. There is no mitral valve regurgitation. There is no mitral valve stenosis. Pulmonic Valve The pulmonic valve is likely normal. Tricuspid Valve Normal tricuspid valve structure. There is trace tricuspid valve regurgitation. The right ventricular systolic pressure is normal. The right ventricular systolic pressure is 20 mmHg. Normal right atrial pressure. There is no evidence of pulmonary hypertension. Great Vessels All visible segments of the aorta are normal in size. The pulmonary artery was not well visualized. Venous The inferior vena cava is normal in size and collapses greater than 50% with inspiration. Pericardium/Pleural There is no evidence of pericardial effusion. Prior Study Comparison No prior study available for comparison. Measurements 2D Linear Measurements IVSd: 1.01 0.6-0.9/0.6-1.0 cm LVIDd: 4.51 3.9-5.3/4.2-5.9 cm LVIDd Index: 2.36 2.4-3.2/2.2-3.1 cm/m2 LVIDs: 3.16 2.0-3.6 cm LVPWd: 0.94 0.7-1.1 cm LA Diam: 3.70 2.7-3.8/3.0-4.0 cm LAIDs Index: 1.94 1.5-2.3 cm/m2 LV Mass: 184.84 67-162/88-224 g LV Mass Index: 96.77 43-95/49-115 g/m2 LVOT Diam: 2.10 3.0+(-)1.3 cm 2D Systolic Function EF 4C: 57.20 >55% EF 2C: 61.10 >55% EF BiP: 58.20 >55% Mitral Valve MV Pk E: 0.75 MV PK A: 0.67 MV Decel Time: 235.00 E/A: 1.10 E'Lateral: 11.00 E'Medial: 9.57 E/E' Med: 7.80 E/E' Lat: 6.80 PHT: 69.00 MVA PHT: 3.19 Decel [place]: 3.17 Aortic Valve AoV Pk [place]: 1.31 AoV Mn [place]: 0.94 AoV VTI: 0.28 AoV Pk Grad: 7.00 Aov Mn Grad: 4.00 JABARI Cont.VTI: 2.60 LVOT LVOT Pk [place]: 1.04 LVOT Mn [place]: 0.80 LVOT VTI: 0.21 LVOT Pk Grad: 4.00 LVOT Mn Grad: 3.00 LVOT Diam: 2.10 LVOT Area: 3.46 Diastolic Function MV Pk E: 0.75 MV Pk A: 0.67 E/A: 1.10 E'Medial: 9.57 E/E' Med: 7.80 E' Laterial: 11.00 E/E' Lat: 6.80 Right Ventricle TAPSE (mm): 22.10 TVS' [place]: 12.20 Tricuspid Valve TR Pk [place]: 2.09 TR Pk Grad: 17.00 RA Press: 3.00 RVSP: 20.00 Great Vessels Aorta Sinus of Valsalva: 3.50 2.0-3.5 cm Ao Asc: 3.30 2.1-3.4 cm Pulmonary Valve PV Pk [place]: 0.94 Peak PV Grad: 4.00 Updated in Other Vendor System with Status of Final Panchito Holcomb MD electronically signed on 11/12/2022 12:29:22 PM with status of Final
== END ==
LOC: HO.CARD 10:48
PROVIDERS: PCP Internal Medicine; Visit Provider Internal Medicine
DX: R00.2 Palpitations (principal); I25.10 Atherosclerotic heart disease of native coronary artery without angina pectoris
CPT/HCPCS: 93270; 93306; 93356

== ENCOUNTER 2023-01-23 09:15 | Outpatient (REF) | payer MEDICARE, SELFPAY ==
[2023-01-23 19:10] LABS: Anion Gap 13 (12-20); Calcium 9.6 mg/dL (8.4-10.2); Carbon Dioxide 25 mmol/L (22-29); Chloride 107 mmol/L (96-108); Glucose Random 94 mg/dL (60-115); Potassium 4.1 mmol/L (3.3-5.1); Sodium 141 mmol/L (135-145)
== END 2023-01-23 09:16 | disposition home or self-care (01) ==
LOC: HO.LAB 09:15
PROVIDERS: PCP Internal Medicine; Visit Provider Surgery Vascular Surgery
DX: I77.79 Dissection of other specified artery (principal); R06.02 Shortness of breath
CPT/HCPCS: 36415; 80048; 82565; 99202